=== PATIENT | male | born 1960 | race Caucasian/White ===

== ENCOUNTER 2019-07-18 18:35 | Observation (INO) ==
--- NOTE | 2019-07-18 19:17 | Emergency Department Note ---
ED Disposition Clinical Impression: Allergic reaction, Angio-edema Disposition: Xfer Short-Term Hosp Condition on Discharge: Serious - Critical Care Critical Care Time: Yes Attestation: On , the high probability of a clinically significant, sudden or life threatening deterioration of the following system(s) required my full and direct attention, intervention and personal management. The time I documented below is in addition to time spent performing reported procedures but includes the following listed in this critical care notation. My critical care processes included: Assessment & monitoring of V/S, Initial and Re-exams Medical Decision Making - Medical Records Medical records reviewed: Yes: I reviewed the patient's medical records. - Humberto Inquiry Pt receiving controlled substance: No Vital Signs: 07/18/19 18:41 07/18/19 19:23 07/18/19 20:18 Temperature 98.0 F 97.9 F Temperature Source Oral Axillary Pulse Rate Pulse Rate [Right Brachial] 88 78 76 Respiratory Rate 18 18 18 Blood Pressure Blood Pressure [Right Arm] 160/104 H 136/86 152/87 H Blood Pressure Mean [Right Arm] 122 102 108 Blood Pressure Source [Right Arm] Automatic Cuff Automatic Cuff Blood Pressure Position [Right Arm] Sitting Sitting 02 Sat by Pulse Oximetry 100 98 94 L Oxygen Delivery Method Room Air Room Air Room Air 07/18/19 22:53 07/18/19 23:23 07/18/19 23:26 Temperature 97.8 F 97.5 F L Temperature Source Oral Pulse Rate 84 Pulse Rate [Right Brachial] 88 81 Respiratory Rate 16 18 24 Blood Pressure 152/87 H Blood Pressure [Right Arm] 141/86 H 151/81 H Blood Pressure Mean [Right Arm] 104 104 Blood Pressure Source [Right Arm] Automatic Cuff Automatic Cuff Blood Pressure Position [Right Arm] Sitting Supine 02 Sat by Pulse Oximetry 95 93 L Oxygen Delivery Method Room Air Room Air - Lab Data Lab Results 07/18/19 21:35: Blood Type A Positive 07/18/19 21:35: WBC 10.8, RBC 4.91, Hgb 15.7, Hct 45.3, MCV 92.3, MCH 32.0 H, MCHC 34.6, RDW 12.9, Plt Count 238, MPV 6.6 L, Neut % (Auto) 86.9 H, Lymph % (Auto) 10.3, [place] % (Auto) 2.6, Eos % (Auto) 0.1, Baso % (Auto) 0.1, Neut # (Auto) 9.4 H, Lymph # (Auto) 1.1, [place] # (Auto) 0.3, Eos # (Auto) 0.0, Baso # (Auto) 0.0, Total Counted 100, Neutrophils % (Manual) 91 H, Lymphocytes % (Manual) 9 L, Platelet Estimate Normal, RBC Morphology Normal 07/18/19 21:35: Sodium 138, Potassium 4.5, Chloride 104, Carbon Dioxide 22, Anion Gap 16.5 H, BUN 17, Creatinine 1.17, Estimated Creat Clear 113, Estimated GFR 64, Est GFR ( Amer) 77, Glucose 157 H, Calcium 9.9, Total Bilirubin 0.5, AST 41 H, ALT 50, Alkaline Phosphatase 48, Total Protein 7.9, Albumin 4.3, Globulin 3.6 H, Albumin/Globulin Ratio 1.2 07/18/19 21:35: Blood Type Confirm A Positive Result diagrams: 07/19/19 04:10 07/19/19 04:10 Orders (Tests/Meds): ED MEDICATIONS Discontinued Medications Generic Name Dose Route Start Last Admin Trade Name Freq PRN Reason Stop Dose Admin Acetaminophen 650 mg 07/18/19 23:24 Acetaminophen 325mg Tab PO 08/17/19 23:23 Q4HP PRN As Needed for Fever or Pain Carvedilol 6.25 mg 07/19/19 09:00 07/19/19 09:38 Coreg 6.25mg Tablet PO 08/18/19 08:59 6.25 mg BID VENESSA Administration Diphenhydramine HCl 50 mg 07/18/19 19:09 07/18/19 19:10 Benadryl 50mg/1ml Vial IV 07/18/19 19:10 50 mg ONCE ONE Administration Diphenhydramine HCl 25 mg 07/18/19 23:16 Benadryl 50mg/1ml Vial IV 08/17/19 23:15 Q4HP PRN Itching Diphenhydramine HCl 25 mg 07/18/19 23:24 Benadryl 50mg/1ml Vial IV 08/17/19 23:15 Q4HP PRN Itching Epinephrine HCl 0.3 mg 07/18/19 20:52 07/18/19 21:30 Epinephrine 1mg/Ml Amp SQ 07/18/19 20:53 0.3 mg ONCE ONE Administration Famotidine 20 mg 07/18/19 19:09 07/18/19 19:11 Pepcid 20mg/2ml Vial IV 07/18/19 19:10 20 mg ONCE ONE Administration Famotidine 20 mg 07/19/19 01:00 Pepcid 20mg/2ml Vial IV 08/18/19 00:59 BID VENESSA Famotidine 20 mg 07/19/19 01:00 07/19/19 09:38 Pepcid 20mg/2ml Vial IV 08/18/19 00:59 20 mg BID VENESSA Administration Sodium Chloride 250 mls @ 25 mls/hr 07/18/19 21:15 07/19/19 03:56 Sod Chlor 0.9% 250ml Bag IV 07/19/19 21:14 25 mls/hr .Q10H VENESSA Administration Sodium Chloride 1,000 mls @ 50 mls/hr 07/18/19 23:24 07/19/19 00:16 Sod Chlor 0.9% 1000ml Bag IV 08/17/19 23:23 50 mls/hr .Q20H VENESSA Administration Lisinopril 40 mg 07/19/19 09:00 07/19/19 09:38 Zestril 20mg Tab PO 08/18/19 08:59 40 mg DAILY VENESSA Administration Methylprednisolone Sodium Succinate 125 mg 07/18/19 19:09 07/18/19 19:11 Solu-Medrol 125mg/2ml Vial IV 07/18/19 19:10 125 mg ONCE ONE Administration Methylprednisolone Sodium Succinate 40 mg 07/18/19 23:15 07/19/19 00:08 Methylprednisolone Sod Succinate 40mg Vial IV 08/17/19 23:14 40 mg Q6H VENESSA Administration Methylprednisolone Sodium Succinate 40 mg 07/19/19 05:15 07/19/19 05:57 Methylprednisolone Sod Succinate 40mg Vial IV 08/17/19 23:14 40 mg Q6H VENESSA Administration Methylprednisolone Sodium Succinate 40 mg 07/19/19 12:00 Methylprednisolone Sod Succinate 40mg Vial IV 08/18/19 11:59 Q6H VENESSA Sodium Chloride 8 ml 07/18/19 19:09 Sodium Chloride 0.9% 10ml Vial IV 08/17/19 19:08 NEEDED PRN dilute pepcid Sodium Chloride 10 ml 07/18/19 19:09 Saline Flush 10ml Syringe IV 08/17/19 19:08 NEEDED PRN Maintain IV Site Sodium Chloride 8 ml 07/18/19 23:13 Sodium Chloride 0.9% 10ml Vial IV 08/17/19 23:12 NEEDED PRN dilute famotidine Sodium Chloride 10 ml 07/18/19 23:13 Saline Flush 10ml Syringe IV 08/17/19 23:12 NEEDED PRN Maintain IV Site Sodium Chloride 8 ml 07/18/19 23:24 07/19/19 09:38 Sodium Chloride 0.9% 10ml Vial IV 08/17/19 23:12 8 ml NEEDED PRN Administration dilute famotidine Sodium Chloride 10 ml 07/18/19 23:24 Saline Flush 10ml Syringe IV 08/17/19 23:12 NEEDED PRN Maintain IV Site General Adult HPI - General Chief complaint: Dental/Oral Stated complaint: Surgery 07/18 on tongue, tongue swelling Time Seen by Provider: 07/18/19 18:50 Mode of Arrival: Family Vehicle Limitations: No Limitations Description of Symptoms (Recalled from ER Triage Doc. by RN): had an oral procedure complete in surgery this morning and noticed swelling this evening extending down into his throat from under his tongue. no actual difficulty breathing, patient still can swallow, feels like "not as well"; denies pain. no signs of bleeding. sutures remain intact. states he has attempted cold water and drink today since surgery to help with swelling with no noticeable change - History of Present Illness Onset (ago): hour(s) (8) Location: mouth Severity: moderate Consistency: constant Relieving factors: none Exacerbating factors: none Associated symptoms: denies other symptoms - Related Data Home Medications Medication Instructions Recorded Confirmed aspirin 81 mg tablet,delayed 81 mg PO DAILY tab 01/24/18 07/19/19 release cholecalciferol (vitamin D3) 2,000 2,000 unit PO DAILY cap 01/24/18 07/19/19 unit capsule lisinopril 40 mg tablet 40 mg PO DAILY tab 01/24/18 07/19/19 pitavastatin calcium 4 mg tablet 4 mg PO HS 01/24/18 07/19/19 vitamin B complex tablet 1 tab PO QAM 01/24/18 07/19/19 carvedilol 3.125 mg tablet 6.25 mg PO BID tab 01/31/19 07/19/19 esomeprazole magnesium 40 mg 40 mg PO DAILY PRN cap 01/31/19 07/19/19 capsule,delayed release Metformin HCl [Metformin HCl ER] 500 mg PO DAILY 07/19/19 07/19/19 Previous Rx's Medication Instructions Recorded Famotidine/Pf [Pepcid 20mg/2mL 20 mg IV BID 10 Days #20 vial 07/19/19 Vial] diphenhydrAMINE HCl [Benadryl 25 mg IV Q6HP PRN 5 Days #20 07/19/19 50mg/1mL vial] syringe predniSONE [Deltasone 10mg tablet] 20 mg PO BID 4 Days #16 tab 07/19/19 Allergies Allergy/AdvReac Type Severity Reaction Status Date / Time hydrocodone [HYDROCODONE] Allergy Unknown Verified 07/12/19 11:11 oxycodone [OXYCODONE] Allergy Unknown Verified 07/12/19 11:11 Penicillins [PENICILLINS] Allergy Unknown Verified 07/12/19 11:11 [facility] History - Hepatitis A Screen Drug use history?: No High risk sexual behaviors?: No History of sexually transmitted infection?: No Currently employed?: No Childcare worker?: No Do you have indoor plumbing?: Yes Do you have electricity?: Yes Attestation statement:: This patient has been screened for Hepatitis A risk factors. I have reviewed the patient's past medical history: Yes Medical History: Reports:: Anxiety, Coronary Artery Disease, Gastroesophageal Reflux Disease(GERD), Hyperlipidemia, Hypertension, Palpitations Denies:: Cancer, Diabetes Mellitus Type 1, Diabetes Mellitus Type 2, Internal Pacemaker, MRSA, Seizures Other Medical History: Reports: Arthritis. Denies: Blood Transfusion Reaction Comment: obesity, JACKIE does not use CPAP Other Surgeries: Yes: Cardiac Catheterization, Other. No: Pacemaker Amputation: No Fractures: No Comment: tongue lesion - Social History Smoking Status: Former smoker Tobacco Type: cigarettes # Packs/Day (cigarettes): 1 Alcohol Intake: never Alcohol Intake Frequency:: other Substance Use Type: denies use Occupational Status: disabled Housing: house Household Members: spouse - Psychiatric History Pschychiatric History:: Reports:: Anxiety Family Hx:: Coronary Artery Disease ROS Obtained: Yes Systems reviewed as appropriate & no additional complaints - Constitutional Constitutional: Reports system reviewed and no additional complaints, except as docu - Eyes Eyes: Reports system reviewed and no additional complaints, except as docu - ENT Ears, Nose, Mouth, and Throat: Reports other (mouth and tongue swelling) - Cardiovascular Cardiovascular: Reports system reviewed and no additional complaints, except as docu - Respiratory Respiratory: Yes system reviewed and no additional complaints, except as docu - Gastrointestinal Gastrointestingal: Reports: system reviewed and no additional complaints, except as docu - Musculoskeletal Musculoskeletal: Reports system reviewed and no additional complaints, except as docu - Integumentary/Breasts Skin/Breast: Reports system reviewed and no additional complaints, except as docu - Neurologic Neurologic: Reports system reviewed and no additional complaints, except as docu - Endocrine Endocrine: Reports system reviewed and no additional complaints, except as docu - Hematologic/Lymphatic Henatologic/Lymphatic: Reports system reviewed and no additional complaints, except as docu - Allergic/Immunologic Allergic/Immunologic: Reports tongue swelling Physical Exam - General General appearance: alert, in no apparent distress - Head Head exam: atraumatic, normocephalic, normal inspection - Eye Eye exam: Present: normal appearance, PERRL, EOMI - ENT ENT exam: Present: normal exam, normal oropharynx, mucous membranes moist, TM's normal bilaterally, normal external ear exam - Expanded ENT Exam Mouth exam: Present: tongue swelling - Neck Neck exam: Present: normal inspection, full ROM, trachea midline. Absent: meningismus, lymphadenopathy - Chest Chest inspection: Present: normal inspection, symmetric chest wall rise. Absent: tenderness - Respiratory Respiratory exam: Present: normal lung sounds bilaterally. Absent: respiratory distress - Cardiovascular Cardiovascular exam: Present: regular rate, normal rhythm. Absent: JVD - Abdominal Exam Abdominal exam: Present: soft, normal bowel sounds. Absent: distention, tenderness, guarding - Extremities Exam Extremities exam: Present: normal inspection, full ROM, normal capillary refill. Absent: calf tenderness - Back Exam Back exam: Present: normal inspection. Absent: tenderness - Neurological Exam Neurological exam: Present: alert, oriented X3 - Psychiatric Psychiatric exam: Present: normal affect, normal mood - Skin Skin exam: Present: warm, dry, intact, normal color - Lymphatic Lymphatic Findings: no adenopathy
[2019-07-18 22:13] LABS: Basophils % 0.1 % (0.1-2.0); Eosinophils % 0.1 % (0.1-12.0); Hematocrit 45.3 % (42.0-52.0); Hemoglobin 15.7 g/dL (14.1-18.0); Lymphocytes # 1.1 K/mm3 (0.7-4.5); Lymphocytes % 10.3 % (10-50); Mean Corpuscular HGB Conc 34.6 g/dL (31.8-35.4); Mean Corpuscular Volume 92.3 fl (80-94); Mean Platelet Volume 6.6 fl (7.4-10.4); Monocytes # 0.3 K/mm3 (0.1-1.0); Monocytes % 2.6 % (1.7-9.3); Neutrophils # 9.4 K/mm3 (1.8-7.8); Neutrophils % 86.9 % (37.0-80.0); Platelet Count 238 K/mm3 (142-424); Red Blood Count 4.91 M/mm3 (4.60-6.20); Red Cell Distribution Width 12.9 % (11.5-17.5); White Blood Count 10.8 K/mm3 (4.8-10.8)
[2019-07-18 22:24] LABS: Albumin Level 4.3 gm/dL (3.4-5.0); Albumin/Globulin Ratio 1.2 (1.1-1.8); Anion Gap 16.5 mEq/L (5-15); Bilirubin,Total 0.5 mg/dL (0.2-1.0); Calcium 9.9 mg/dL (8.5-10.1); Globulin 3.6 gm/dl (1.3-3.2); Total Protein,Serum 7.9 gm/dL (6.4-8.2)
[2019-07-18 23:32] LABS: Lymphocytes % 9 % (10-50); Neutrophils % 91 % (42-76); RBC Morphology Normal; Total Cells Counted 100
[2019-07-19 04:38] LABS: Basophils % 0.1 % (0.1-2.0); Eosinophils % 0.1 % (0.1-12.0); Hematocrit 42.7 % (42.0-52.0); Lymphocytes # 1.3 K/mm3 (0.7-4.5); Lymphocytes % 10.3 % (10-50); Mean Corpuscular HGB Conc 33.1 g/dL (31.8-35.4); Mean Corpuscular Volume 93.2 fl (80-94); Mean Platelet Volume 7.2 fl (7.4-10.4); Monocytes # 0.3 K/mm3 (0.1-1.0); Monocytes % 2.2 % (1.7-9.3); Neutrophils # 11.4 K/mm3 (1.8-7.8); Neutrophils % 87.4 % (37.0-80.0); Platelet Count 228 K/mm3 (142-424); Red Blood Count 4.58 M/mm3 (4.60-6.20)
[2019-07-19 04:45] LABS: Hemoglobin 14.3 g/dL (14.1-18.0)
[2019-07-19 04:53] LABS: Albumin Level 4.2 gm/dL (3.4-5.0); Albumin/Globulin Ratio 1.2 (1.1-1.8); Anion Gap 15.1 mEq/L (5-15); Bilirubin,Total 0.4 mg/dL (0.2-1.0); Calcium 9.5 mg/dL (8.5-10.1); Globulin 3.6 gm/dl (1.3-3.2); Phosphorous 2.8 mg/dL (2.4-4.9); Total Protein,Serum 7.8 gm/dL (6.4-8.2)
--- NOTE | 2019-07-19 08:12 | Pharmacy Consult Notes ---
[facility] Pharmacy VTE Monitoring - Patient Demographics Admission date: 07/18/19 Report Date: 07/19/19 Time: 08:12 Allergies/Adverse Reactions: Patient Allergies hydrocodone [HYDROCODONE] Allergy (Unknown, Verified 07/12/19 11:11) oxycodone [OXYCODONE] Allergy (Unknown, Verified 07/12/19 11:11) Penicillins [PENICILLINS] Allergy (Unknown, Verified 07/12/19 11:11) Height: 1.8 m Weight: 101.661 kg Patient Problems: Current Active Problems Allergic reaction (Acute) Angio-edema (Acute) - VTE Risk Labs: VTE Related Lab Results Hgb 14.3 g/dL (14.1-18.0) 07/19/19 04:10 Hct 42.7 % (42.0-52.0) 07/19/19 04:10 Plt Count 228 K/mm3 (142-424) 07/19/19 04:10 BUN 17 mg/dL (7-18) 07/19/19 04:10 Creatinine 1.13 mg/dL (0.70-1.30) 07/19/19 04:10 Estimated Creat Clear 100 mL/min (50-200) 07/19/19 04:10 VTE Score: 4 VTE Risk Level: Low Risk - Prophylaxis VTE Prophylaxis Ordered?: Yes Types of VTE Prophylaxis: TEDS Knee High Location of Applied Device: Bilateral Lower Extremeties - VTE Diagnosis Confirmed Treatment or plan recommended: Continue Current Treatment
--- NOTE | 2019-07-19 08:44 | H&P/Discharge Summary ---
General - General Admission date:: 07/18/19 Discharge date: 07/19/19 *Admission Date: 07/18/19 *Chief complaint: swelling tongue *History of present illness: Mr. 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 Has had multiple resections performed by ENT. Patient had a procedure performed yesterday by Dr. Abrmas and noted swelling of his tongue at home. Presented to the ER due to worsening swelling or he was diagnosed with angioedema. Initiated on steroids, Benadryl, famotidine. Received a single dose of epinephrine. Admitted overnight for observation due to concern of potential airway obstruction. On assessment this morning patient is feeling much better. Able to talk without significant difficulty. Denies shortness of breath, chest pain, wheeze, nausea or vomiting. [facility] History I have reviewed the patient's past medical history: Yes Medical History: Reports:: Anxiety, Coronary Artery Disease, Diabetes Mellitus Type 2, Gastroesophageal Reflux Disease(GERD), Hyperlipidemia, Hypertension, Palpitations Denies:: Cancer, Diabetes Mellitus Type 1, Internal Pacemaker, MRSA, Seizures *Have you ever received a pneumonia vaccine?: Yes *Have you received a flu vaccine this season?: No Other Medical History: Reports: Arthritis. Denies: Blood Transfusion Reaction Other Surgeries: Yes: Cardiac Catheterization, Other (ORAL SX). No: Pacemaker Amputation: No Fractures: No - *Social History Educational Level: Attended Grade School Smoking Status: Former smoker Tobacco Type: cigarettes # Packs/Day (cigarettes): 1 Smoking End Date: 15 YEARS Alcohol Intake: former Alcohol Intake Frequency:: other Substance Use Type: denies use *Occupational Status:: disabled Housing: apartment Household Members: spouse *Travel in the last 8 weeks: None - Psychiatric History Expresses thoughts of harming self/others: None Suicide Plan Description: No Plan Pschychiatric History:: Reports:: Anxiety Family Hx:: Coronary Artery Disease Review of Systems - Review of Systems Review of systems:: pertinent systems reviewed and negative unless documented below Exam Vital signs and Labs for Last 24 Hours: Temp Pulse Resp BP Pulse Ox 98.7 F 78 18 155/87 H 94 L 07/19/19 08:00 07/19/19 06:00 07/19/19 06:00 07/19/19 06:00 07/19/19 06:00 Laboratory Results - last 24 hr 07/18/19 21:35: Blood Type A Positive 07/18/19 21:35: WBC 10.8, RBC 4.91, Hgb 15.7, Hct 45.3, MCV 92.3, MCH 32.0 H, MCHC 34.6, RDW 12.9, Plt Count 238, MPV 6.6 L, Neut % (Auto) 86.9 H, Lymph % (Auto) 10.3, [place] % (Auto) 2.6, Eos % (Auto) 0.1, Baso % (Auto) 0.1, Neut # (Auto) 9.4 H, Lymph # (Auto) 1.1, [place] # (Auto) 0.3, Eos # (Auto) 0.0, Baso # (Auto) 0.0, Total Counted 100, Neutrophils % (Manual) 91 H, Lymphocytes % (Manual) 9 L, Platelet Estimate Normal, RBC Morphology Normal 07/18/19 21:35: Sodium 138, Potassium 4.5, Chloride 104, Carbon Dioxide 22, Anion Gap 16.5 H, BUN 17, Creatinine 1.17, Estimated Creat Clear 113, Estimated GFR 64, Est GFR ( Amer) 77, Glucose 157 H, Calcium 9.9, Total Bilirubin 0.5, AST 41 H, ALT 50, Alkaline Phosphatase 48, Total Protein 7.9, Albumin 4.3, Globulin 3.6 H, Albumin/Globulin Ratio 1.2 07/18/19 21:35: Blood Type Confirm A Positive 07/19/19 04:10: WBC 13.0 H, RBC 4.58 L, Hgb 14.3, Hct 42.7, MCV 93.2, MCH 30.9, MCHC 33.1, RDW 13.0, Plt Count 228, MPV 7.2 L, Neut % (Auto) 87.4 H, Lymph % (Auto) 10.3, [place] % (Auto) 2.2, Eos % (Auto) 0.1, Baso % (Auto) 0.1, Neut # (Auto) 11.4 H, Lymph # (Auto) 1.3, [place] # (Auto) 0.3, Eos # (Auto) 0.0, Baso # (Auto) 0.0 07/19/19 04:10: Sodium 140, Potassium 4.1, Chloride 105, Carbon Dioxide 24, Anion Gap 15.1 H, BUN 17, Creatinine 1.13, Estimated Creat Clear 100, Estimated GFR 66, Est GFR ( Amer) 80, Glucose 176 H, Calcium 9.5, Phosphorus 2.8, Magnesium 1.9, Total Bilirubin 0.4, AST 34, ALT 40, Alkaline Phosphatase 43 L, Total Protein 7.8, Albumin 4.2, Globulin 3.6 H, Albumin/Globulin Ratio 1.2 07/19/19 05:56: POC Glucose 196 H I & O for Last 24 hours: Intake & Output 07/16/19 07/17/19 07/18/19 07/19/19 23:59 23:59 23:59 23:59 Intake Total 155.10 / 155.10 Output Total 700 / 700 Balance -544.90 / -544.90 Weight 100.783 kg 101.661 kg - Constitutional no acute distress - *Routine HEENT Exam Head: Present: normocephalic Eye: Present: EOMI, PERRL ENT: Present: mucous membranes moist Comments: Right side of tongue larger than left, ecchymoses on base of tongue. Stitches in place. Able to appreciate oropharynx on exam with no concern for obstruction - *Routine Neck Exam Present: supple. Absent: lymphadenopathy - *Routine Respiratory Exam Present: CTA bilaterally - *Routine Cardiovascular Exam Present: RRR - *Routine Abdominal Exam Present: soft, normoactive bowel sounds. Absent: tenderness - *Routine Extremities Exam Absent: cyanosis, clubbing, edema - *Routine Skin Exam Present: warm. Absent: rash - *Routine Neurological Exam Present: alert, oriented X3 Hospital Course Hospital Course: Treated aggressively with steroids, Benadryl, famotidine, and epinephrine. Additionally received FFP. Patient doing better this morning. No respiratory distress overnight. Patient tolerating p.o. intake. Stable for discharge home. Plan to discharge on regimen to help control swelling. Instructed to follow-up in our office in 1 week Results Labs on day of discharge: Labs from last 24 hours 07/19/19 07/19/19 07/19/19 05:56 04:10 04:10 WBC 13.0 H RBC 4.58 L Hgb 14.3 Hct 42.7 MCV 93.2 MCH 30.9 MCHC 33.1 RDW 13.0 Plt Count 228 MPV 7.2 L Neut % (Auto) 87.4 H Lymph % (Auto) 10.3 [place] % (Auto) 2.2 Eos % (Auto) 0.1 Baso % (Auto) 0.1 Neut # (Auto) 11.4 H Lymph # (Auto) 1.3 [place] # (Auto) 0.3 Eos # (Auto) 0.0 Baso # (Auto) 0.0 Total Counted Neutrophils % (Manual) Lymphocytes % (Manual) Platelet Estimate RBC Morphology Sodium 140 Potassium 4.1 Chloride 105 Carbon Dioxide 24 Anion Gap 15.1 H BUN 17 Creatinine 1.13 Estimated Creat Clear 100 Estimated GFR 66 Est GFR ( Amer) 80 Glucose 176 H POC Glucose 196 H Calcium 9.5 Phosphorus 2.8 Magnesium 1.9 Total Bilirubin 0.4 AST 34 ALT 40 Alkaline Phosphatase 43 L Total Protein 7.8 Albumin 4.2 Globulin 3.6 H Albumin/Globulin Ratio 1.2 Blood Type Blood Type Confirm 07/18/19 07/18/19 07/18/19 21:35 21:35 21:35 WBC 10.8 RBC 4.91 Hgb 15.7 Hct 45.3 MCV 92.3 MCH 32.0 H MCHC 34.6 RDW 12.9 Plt Count 238 MPV 6.6 L Neut % (Auto) 86.9 H Lymph % (Auto) 10.3 [place] % (Auto) 2.6 Eos % (Auto) 0.1 Baso % (Auto) 0.1 Neut # (Auto) 9.4 H Lymph # (Auto) 1.1 [place] # (Auto) 0.3 Eos # (Auto) 0.0 Baso # (Auto) 0.0 Total Counted 100 Neutrophils % (Manual) 91 H Lymphocytes % (Manual) 9 L Platelet Estimate Normal RBC Morphology Normal Sodium 138 Potassium 4.5 Chloride 104 Carbon Dioxide 22 Anion Gap 16.5 H BUN 17 Creatinine 1.17 Estimated Creat Clear 113 Estimated GFR 64 Est GFR ( Amer) 77 Glucose 157 H POC Glucose Calcium 9.9 Phosphorus Magnesium Total Bilirubin 0.5 AST 41 H ALT 50 Alkaline Phosphatase 48 Total Protein 7.9 Albumin 4.3 Globulin 3.6 H Albumin/Globulin Ratio 1.2 Blood Type Blood Type Confirm A Positive 07/18/19 21:35 WBC RBC Hgb Hct MCV MCH MCHC RDW Plt Count MPV Neut % (Auto) Lymph % (Auto) [place] % (Auto) Eos % (Auto) Baso % (Auto) Neut # (Auto) Lymph # (Auto) [place] # (Auto) Eos # (Auto) Baso # (Auto) Total Counted Neutrophils % (Manual) Lymphocytes % (Manual) Platelet Estimate RBC Morphology Sodium Potassium Chloride Carbon Dioxide Anion Gap BUN Creatinine Estimated Creat Clear Estimated GFR Est GFR ( Amer) Glucose POC Glucose Calcium Phosphorus Magnesium Total Bilirubin AST ALT Alkaline Phosphatase Total Protein Albumin Globulin Albumin/Globulin Ratio Blood Type A Positive Blood Type Confirm DS: Diagnosis - Discharge Diagnosis (1) Tongue lesion Status: Acute (2) Angio-edema Status: Acute Discharge Plan - Patient Discharge Instructions ACTIVITY: Continue current activity DIET: continue same diet Patient Instructions: DI for Angioedema, DI for General Allergic Reactions - Follow up Plan Follow up with: Lyudmila Preston APRN [Primary Care Provider] - Disposition: Home, Self-Halfway Medications: Home Medications Medication Instructions Recorded Confirmed Type aspirin 81 mg tablet,delayed 81 mg PO DAILY tab 01/24/18 07/19/19 History release cholecalciferol (vitamin D3) 2,000 2,000 unit PO DAILY cap 01/24/18 07/19/19 History unit capsule lisinopril 40 mg tablet 40 mg PO DAILY tab 01/24/18 07/19/19 History pitavastatin calcium 4 mg tablet 4 mg PO HS 01/24/18 07/19/19 History vitamin B complex tablet 1 tab PO QAM 01/24/18 07/19/19 History carvedilol 3.125 mg tablet 6.25 mg PO BID tab 01/31/19 07/19/19 History esomeprazole magnesium 40 mg 40 mg PO DAILY PRN cap 01/31/19 07/19/19 History capsule,delayed release Famotidine/Pf [Pepcid 20mg/2mL 20 mg IV BID 10 Days #20 vial 07/19/19 Rx Vial] Metformin HCl [Metformin HCl ER] 500 mg PO DAILY 07/19/19 07/19/19 History diphenhydrAMINE HCl [Benadryl 25 mg IV Q6HP PRN 5 Days #20 07/19/19 Rx 50mg/1mL vial] syringe predniSONE [Deltasone 10mg tablet] 20 mg PO BID 4 Days #16 tab 07/19/19 Rx Prescriptions/Medication Reconciliation: New Famotidine/Pf [Pepcid 20mg/2mL Vial] 20 mg IV BID 10 Days #20 vial diphenhydrAMINE HCl [Benadryl 50mg/1mL vial] 25 mg IV Q6HP PRN 5 Days #20 syringe PRN Reason: Itching Continued lisinopril 40 mg tablet 40 mg PO DAILY tab pitavastatin calcium 4 mg tablet 4 mg PO HS vitamin B complex tablet 1 tab PO QAM cholecalciferol (vitamin D3) 2,000 unit capsule 2,000 unit PO DAILY cap carvedilol 3.125 mg tablet 6.25 mg PO BID tab aspirin 81 mg tablet,delayed release 81 mg PO DAILY tab esomeprazole magnesium 40 mg capsule,delayed release 40 mg PO DAILY PRN cap PRN Reason: gerd Metformin HCl [Metformin HCl ER] 500 mg PO DAILY - Problem Reconciliation Problems Reviewed?: Yes
== END 2019-07-19 10:40 | disposition home or self-care (01) ==
LOC: ER 18:35 → 2ND 22:45 → INTOOBSV 23:25 → 2ND 23:27
PROVIDERS: ADMIT Internal Medicine Adolescent Medicine; ATTEND Internal Medicine Adolescent Medicine
CPT/HCPCS: 36415; 70490; 80053; 82962; 83735; 84100; 85007; 85025; 86900; 86901; 96372; 96374; 96375; 99284; G0378; J0330; J2405; P9017; S0077

== ENCOUNTER → 2020-11-06 07:23 | Outpatient (CLI) | payer MEDICARE, OTHER, MEDICAID, SELFPAY ==
--- NOTE | 2020-11-06 | CA_ITS ---
APPROVED REPORT Exam: Pharmacologic Technologist: Renetta oYo, Ht: 5 ft 10 in Wt: 227 lbs BSA: 2.20 m2 HR: 67 bpm BP: 178/102 mmHg Rhythm: NSR Medical History Medical History: Diabetic ??? Noninsulin, HTN, Hyperlipidemia Medications: Lisinopril,,,,, Asa,,,,, Metformin,,,,, Carvedilol,,,,, Nexium,,,,, Vit D3,,,,, Vit B,,,,, LiVALO,,,,, ICOSAPENT,,,,, Allergies: HYDROCODONE, OXYCODONE, PCN, STATINS Cardiac Risk Factors: HTN, Hyperlipidemia, Diabetes (non-insulin), FHX of CAD Stress Test Details Test: LEXISCAN HR Resting HR: 69 bpm Max Heart Rate (APMHR): 160 bpm Max HR Achieved: 108 bpm Target HR (85% APMHR): 136 bpm % of APMHR: 67 Recovery HR: 91 bpm BP Resting BP: 178.0/102.0 mmHg Max BP: 178.0/102.0 mmHg Recovery BP: 158.0/86.0 mmHg ECG Resting ECG: NSR Clinical Reason for Termination: Completed Protocol Exercise duration: 04:05 min Highest Stage Achieved: Exercise capacity: 1.0 METs Stress ECG Conclusion DURING INFUSION PATIENT HAD NO CHEST PAIN. NO ARRHYTHMIAS/ECTOPY. <1.5MM ST SEGMENT CHANGES. NON-DIAGNOSTIC Electronically signed by : Luiz Sarkar, 11/06/2020 11:37:54
--- NOTE | 2020-11-06 | NM_ITS ---
APPROVED REPORT Exam: Nuclear Stress Test Indication: DYSRHYTHMIA, VALVULAR DISEASE, HTN, HYPERLIPIDEMIA, FM HX, SOB Patient Location: Outpatient Stress Tech: Angelica Arenasnkson [place] Tech:MARY Toledo RT (R)(N)(M) Ht: 5 ft 11 in Wt: 226 lbs HR: 67 bpm BP: 178/102 mmHg BSA: 2.22 m2 BMI: 31.5 History: DYSRHYTHMIA, VALVULAR DISEASE, HTN, HYPERLIPIDEMIA, FM HX, SOB Procedure: Patient received a 0.4 mg of intravenous Lexiscan, resting heart rate 67 bpm, resting blood pressure 178/102 mmHg, with Lexiscan maximum heart rate achived was 106 bpm which is Less than 85 % of the maximum predicted heart rate and blood pressure was 175/90 mmHg. With Lexiscan, patient denied any complaint of chest pain. Electrocardiogram Resting electrocardiogram showed sinus rhythm, with Lexiscan there is less than 1.[address] segment depression noted from the baseline EKG. The EKG portion of the Lexiscan is nondiagnostic. Cardiac Stress and Resting SPECT Images: Cardiac Stress and Resting SPECT images were obtained using technetium 99m Myoview 30.0 mCi stress and 10.68 mCi at rest. Gated SPECT for analysis of segmental wall motion and calculation of the ejection fraction also done. Prone images were also obtained. Cardiac stress and resting SPECT images show uniform myocardial activity without segmental perfusion abnormality, computer derived ejection fraction is 58% with no regional wall motion abnormality, right ventricle is normal size and contractility. Conclusion: 1. The EKG portion of the Lexiscan is nondiagnostic. 2. No scintigraphic evidence of reversible ischemia seen, computer derived ejection fraction is 58% with no regional wall motion abnormality, right ventricle is normal size and contractility. 3. Normal Lexiscan Myoview study. Electronically signed by : Luiz Sarkar, 11/06/2020 11:41:47
--- NOTE | 2020-11-06 07:35 | CA_ITS ---
APPROVED REPORT EXAM: Comprehensive 2D, Doppler, and color-flow Echocardiogram Functional Tester: Syeda Marcos CRT Ht: 5 ft 10 in Wt: 227lbs BSA: 2.20 BP: 130/80 mmHg Indications: Shortness of Breath, Diabetes, Palpitations, Hyperlipidemia, Hypertension/HDD, myocardial bridge 2017, bradycardia, gerd 2D Dimensions LVOT 1.72 cm (M/F) 1.5-2.5 M-Mode Dimensions RVDd 3.23 cm (0.9-2.6) LA Diam 4.03 cm (1.9-4.0) LVDd 5.89 cm (3.5-5.7) Ao Diam 4.69 cm (2.0-3.7) LVDs 3.42 cm (3.5-5.7) IVSd 1.25 cm (0.6-1.1) PWd 0.27 cm (0.6-1.1) EF (Teich) 72.10% FS 41.90% EDV (Teich) 172.50 mL ESV (Teich) 48.10 mL LV Diastology E Decel Time 157.00 (160-240 msec) E/A Ratio 1.03 MED E' 6.00 (< 7 cm/sec) E'/MED E' Ratio 13.82 (>14) LAT E' 9.00 (<10 cm/sec) E/LAT E' Ratio 9.21 (>14) Aortic Valve AO Peak GR. 6.20 mmHg Mitral Valve MV A Velocity 80.00 (40-130 cm/s) E/A Ratio 1.03 MV Decel. Time 157.00 (160-240 ms) Pulmonary Valve PV Peak Velocity 76.00 (50-150 cm/s) Tricuspid Valve TR P. Velocity 162.00 cm/s RAP Estimate 1.00 mmHg RVSP 11.50 mmHg Left Ventricle Left atrium is mildly enlarged, left ventricle is normal size, mild concentric left ventricular hypertrophy, visually estimated ejection fraction 55% with no regional wall motion abnormality, grade 1 diastolic dysfunction seen without tissue Doppler evidence of raise left atrial pressure. Right Ventricle Right atrium and right ventricle are normal size and contractility. Aortic Valve Aortic valve is minimally thickened and fibrosed, there is no aortic stenosis or aortic insufficiency. Mitral Valve Mitral valve is grossly normal, there is mild mitral regurgitation. Tricuspid Valve Tricuspid valve is grossly normal, there is mild tricuspid regurgitation, tricuspid regurgitation jet velocity is inadequate for calculation of the right ventricular systolic pressure. Pulmonic Valve Pulmonic valve is poorly visualized. Great Vessels Aortic root is normal size. Pericardium No significant pericardial effusion noted. Conclusion 1. Mildly enlarged left atrium, normal left ventricular size, mild concentric left ventricular hypertrophy, visually estimated ejection fraction 55% with no regional wall motion abnormality, grade 1 diastolic dysfunction seen without tissue Doppler evidence of raise left atrial pressure. 2. Mild mitral and tricuspid regurgitation. 3. No significant pericardial effusion noted. Electronically signed by : Luiz Sarkar, 11/06/2020 13:01:34
== END ==
PROVIDERS: PCP Nurse Practitioner Family; Visit Provider Nurse Practitioner Family
DX: R07.9 Chest pain, unspecified (principal); R06.00 Dyspnea, unspecified; I25.10 Atherosclerotic heart disease of native coronary artery without angina pectoris; I11.9 Hypertensive heart disease without heart failure; E78.5 Hyperlipidemia, unspecified
CPT/HCPCS: 78452; 93017; 93306; A9502; J2785

== ENCOUNTER 2020-12-04 09:33 | Emergency (ER) | payer MEDICARE, OTHER, SELFPAY ==
[2020-12-04 09:44] VITALS: BP 147/73; PULSE 79; RESP 18; TEMP 36.7; O2SAT 94; BMI 31.5
[2020-12-04 09:45] VITALS: BP 147/73; PULSE 79; RESP 18; TEMP 36.7; O2SAT 94; BMI 31.4
--- NOTE | 2020-12-04 09:54 | XR_ITS ---
PROCEDURE: XR CHEST 2V CLINICAL HISTORY: cough Hemoptysis COMPARISON: CR CXR CHEST(2 VIEWS-NOT PORTABLE) from 05/28/2017 FINDINGS: The cardiomediastinal silhouette and pulmonary vascularity are within normal limits. There are low lung volumes. Masslike density is present in the right lower lobe measuring 6 by 6 cm and may be due to an area of dense consolidation/rounded pneumonia. Neoplasm is also considered. Chest CT with contrast suggested for further evaluation. Patchy density also present in the left lung base and right midlung may be due to areas of atelectasis/vascular crowding. No acute bony findings.. IMPRESSION: Right lower lobe mass versus dense area of consolidation. Consider chest CT with contrast for further evaluation Dictated by: Sherif Zurita MD 12/04/2020 10:39 Sherif Zurita MD in [place] 12/04/2020 10:39
--- NOTE | 2020-12-04 09:56 | HMH.EDUTC ---
[facility] [place] Disposition Clinical Impression: Hemoptysis Disposition: Home, Self-Care Condition on Discharge: Good Instructions: DI for Hemoptysis Additional Instructions: Call Aysha's office and let them know you have had an abnormal Xray and need to be scheduled for a CT scan Prescriptions: levoFLOXacin [Levaquin 500mg tab] 500 mg PO DAILY 10 Days #10 tab Transmission Status: Pending to [facility] # predniSONE [Prednisone 20mg Tab] 20 mg PO BID 5 Days #10 tab Transmission Status: Pending to [facility] [facility] # Referrals: Lyudmila Preston APRN [Primary Care Provider] - Time of Disposition: 10:57 Medical Decision Making - Humberto Inquiry Pt receiving controlled substance: No Vital Signs: 12/04/20 09:44 12/04/20 09:45 Temperature 98.0 F 98.0 F Temperature Source Oral Oral Pulse Rate [Left Radial] 79 79 Respiratory Rate 18 18 Blood Pressure [Left Arm] 147/73 H 147/73 H Blood Pressure Mean [Left Arm] 97 97 Blood Pressure Source [Left Arm] Automatic Cuff Automatic Cuff Blood Pressure Position [Left Arm] Sitting Sitting 02 Sat by Pulse Oximetry 94 L 94 L Oxygen Delivery Method Room Air Room Air - Radiology Data #1 Image(s): Chest Image Reviewed: Yes I reviewed the patient's radiology image, Yes I have reviewed radiologist's interpretation Preliminary Findings: Abnormal FINDINGS: The cardiomediastinal silhouette and pulmonary vascularity are within normal limits. There are low lung volumes. Masslike density is present in the right lower lobe measuring 6 by 6 cm and may be due to an area of dense consolidation/rounded pneumonia. Neoplasm is also considered. Chest CT with contrast suggested for further evaluation. Patchy density also present in the left lung base and right midlung may be due to areas of atelectasis/vascular crowding. No acute bony findings.. IMPRESSION: Right lower lobe mass versus dense area of consolidation. Consider chest CT with contrast for further evaluation Medical Decision Narrative: Discussed CXR results with patient and his . I will treat for pneumonia but reiterated several times that they are to call this afternoon to make a follow up appointment with Aysha Preston for further testing. [facility] [place] HPI - General Stated complaint: coughing up blood Time Seen by Provider: 12/04/20 09:56 Mode of Arrival: Ambulatory Source of Information: Patient Limitations: No Limitations Description of Symptoms (Recalled from Triage Doc. by RN): pt reports coughing up pink tinged sputum x2 days, denies SOA, pain, fevers. Pt reports approx 1 week ago for a couple of days he had some nasal drainage from his sinuses stating it was pink tinged. - History of Present Illness Provider Complaint: 1 week ago had some pink tinged bloody sinus drainage. Now coughing up pink tinged sputum. No fever. No ear pain, sinus congestion, sore throat. No shortness of breath. No fever. No vomiting or diarrhea. Does not smoke. This morning what he coughed up looked a little darker and he thought he should get checked. Has some pain across the middle of his back. Started after having a stress test a week or two ago, but he states his results were normal. He does take ASA daily but denies other blood thinners. Onset (ago): week(s) (1) Location: chest Consistency: intermittent Relieving factors: none Exacerbating factors: none Associated symptoms: cough Treatments prior to arrival: none - Related Data Home Medications Medication Instructions Recorded Confirmed aspirin 81 mg tablet,delayed 81 mg PO DAILY tab 01/24/18 12/04/20 release cholecalciferol (vitamin D3) 50 2,000 unit PO DAILY cap 01/24/18 12/04/20 mcg (2,000 unit) capsule lisinopril 40 mg tablet 40 mg PO DAILY tab 01/24/18 12/04/20 pitavastatin calcium 4 mg tablet 4 mg PO HS 01/24/18 12/04/20 esomeprazole magnesium 40 mg 40 mg PO DAILYP PRN cap 01/31/19 12/04/20 capsule,delayed
[2020-12-04 11:04] VITALS: BP 147/73; PULSE 79; RESP 18; TEMP 36.7; O2SAT 94
== END 2020-12-04 11:06 | disposition home or self-care (01) ==
LOC: ER 09:45 → UTC 09:46
PROVIDERS: Emergency Provider Physician Assistant; PCP Nurse Practitioner Family
DX: J18.9 Pneumonia, unspecified organism (principal); I10 Essential (primary) hypertension; E78.5 Hyperlipidemia, unspecified; I25.10 Atherosclerotic heart disease of native coronary artery without angina pectoris; E11.9 Type 2 diabetes mellitus without complications; F41.9 Anxiety disorder, unspecified; Z79.899 Other long term (current) drug therapy; Z88.0 Allergy status to penicillin; Z88.5 Allergy status to narcotic agent
CPT/HCPCS: G0463; 71046; 99202

== ENCOUNTER → 2020-12-10 09:37 | Outpatient (CLI) | payer MEDICARE, OTHER, SELFPAY ==
[2020-12-10 10:47] LABS: Blood Urea Nitrogen 20 mg/dl (9-20); Estimated Glomerular Filt Rate 62 ml/min (>60); GFR (African American) 75 ML/MIN (>60)
== END ==
PROVIDERS: Visit Provider Internal Medicine Adolescent Medicine
DX: R93.89 Abnormal findings on diagnostic imaging of other specified body structures (principal)
CPT/HCPCS: 36415; 82565; 84520

== ENCOUNTER → 2020-12-11 09:46 | Outpatient (CLI) | payer MEDICARE, OTHER, SELFPAY ==
--- NOTE | 2020-12-11 09:53 | CT_ITS ---
PROCEDURE: CT CHEST W CON CLINCAL INDICATION: ABN CXR, hemoptysis, abnormal chest x-ray, cough, possible lung mass Spit up blood a couple weeks ago, Dyspnea on exertion, Iso 370 75 ml COMPARISON: CR XR CHEST 2V from 12/04/2020 TECHNIQUE: IV Contrast: 75ml Isovue 370 Axial images obtained with sagittal and coronal reformats. All CT scans at the facility use one or more dose reduction, viz: automated exposure control, ma/kV adjustment per patient size (including targeted exams where dose is matched to indication, i.e. head), or iterative reconstruction technique. FINDINGS: HEART AND MEDIASTINAL STRUCTURES: Coronary artery calcifications are present. There are a few mildly prominent mediastinal lymph nodes and small bilateral hilar nodes. Right anterior paratracheal lymph node is present measuring 2.4 x 1.2 cm. Mildly prominent right hilar node is also present at 1.2 cm. There is subcarinal adenopathy at 2.9 x 1.8 cm. The LUNGS AND PLEURAL SPACES: Mild centrilobular emphysema and mild paraseptal emphysema in the lung apices. Mild bronchial thickening suggesting COPD. There is some patchy infiltrate in the right lower lobe superiorly and anteriorly and in the right upper lobe laterally. There is a 5 cm mass in the right lower lobe posteriorly rounded in nature. The margins are somewhat irregular with extension to the pleural surface posteriorly. This contains a coarse central calcification and a peripheral calcification posteriorly. This is highly suspicious for neoplasm. Dense consolidation would be included in the differential diagnosis. This is contiguous with the posterior basilar segmental bronchus and should be accessible for biopsy via bronchoscopy. BONY STRUCTURES: No acute bony abnormalities apparent. UPPER ABDOMEN: Posterior to the right lobe of the liver and superior to the right kidney there is a 3 cm irregular area of increased density rounded in nature within the retroperitoneal fat. This extends to the hemidiaphragm with some mild thickening along the inferior surface of the hemidiaphragm. The adrenal glands are slightly lobular which are nonspecific. ADDITIONAL FINDINGS: No other significant abnormalities. IMPRESSION: 1. 5 cm mass in the right lower lobe posteriorly rounded in nature. This is highly suspicious for neoplasm. Dense consolidation would be included in the differential diagnosis. This is contiguous with the posterior basilar segmental bronchus and should be accessible for biopsy via bronchoscopy 2. Mild mediastinal and right hilar adenopathy. 3. Patchy infiltrates in the right lower lobe and right upper lobe. 4. Unusual 3 cm mass or phlegmonous change in the retroperitoneum on the right superior to the right kidney. This could be due to metastatic disease, primary retroperitoneal neoplasm, or inflammatory/infectious change. Dictated by: Sherif Zurita MD 12/13/2020 12:12 Sherif Zurita MD in [place] 12/13/2020 12:12
== END ==
PROVIDERS: PCP Nurse Practitioner Family; Visit Provider Nurse Practitioner Family
DX: R06.09 Other forms of dyspnea (principal); R93.89 Abnormal findings on diagnostic imaging of other specified body structures
CPT/HCPCS: 71260; Q9967

== ENCOUNTER → 2021-01-11 09:51 | Outpatient (CLI) | payer MEDICARE, OTHER, SELFPAY ==
[2021-01-11 10:26] LABS: Basophils # 0.1 K/mm3 (0-0.2); Basophils % 0.8 % (0.1-2.0); Eosinophils # 0.4 K/mm3 (0.0-0.4); Eosinophils % 5.2 % (0.1-12.0); Hematocrit 45.1 % (42.0-52.0); Hemoglobin 15.1 g/dL (14.1-18.0); Lymphocytes # 1.8 K/mm3 (0.7-4.5); Lymphocytes % 24.1 % (10-50); Mean Corpuscular HGB Conc 33.5 g/dL (31.8-35.4); Mean Corpuscular Hemoglobin 30.4 pg (27.0-31.2); Mean Corpuscular Volume 90.7 fl (80-94); Mean Platelet Volume 6.8 fl (7.4-10.4); Monocytes # 0.7 K/mm3 (0.1-1.0); Neutrophils # 4.5 K/mm3 (1.8-7.8); Neutrophils % 60.9 % (37.0-80.0); Platelet Count 269 K/mm3 (142-424); Red Blood Count 4.97 M/mm3 (4.60-6.20); Red Cell Distribution Width 13.1 % (11.5-17.5); White Blood Count 7.3 K/mm3 (4.8-10.8)
[2021-01-11 10:35] LABS: INR 1.04 (0.9-1.1); Prothrombin Time 11.7 seconds (9.4-11.8)
[2021-01-14 22:39] LABS: Aspergillus flavus Negative (Neg:<1:1); Aspergillus fumigatus Negative (Neg:<1:1); Aspergillus niger Negative (Neg:<1:1)
[2021-01-15 18:36] LABS: Blastomyces Antibody Negative (Neg:<1:1)
== END ==
LOC: LAB 09:52 → COVID.OUT 10:13
PROVIDERS: PCP Nurse Practitioner Family; Visit Provider Internal Medicine Pulmonary Disease
DX: R04.2 Hemoptysis (principal); J45.909 Unspecified asthma, uncomplicated; J84.10 Pulmonary fibrosis, unspecified; Z01.818 Encounter for other preprocedural examination; Z20.822 Contact with and (suspected) exposure to COVID-19
CPT/HCPCS: 36415; 85025; 85610; 86606; 86612; U0003

== ENCOUNTER → 2021-01-13 11:28 | Day surgery (SDC) | payer MEDICARE, OTHER, SELFPAY ==
[2021-01-07 09:47] VITALS: BMI 32.0
--- NOTE | 2021-01-13 12:21 | SUR.PREOP ---
Procedure cancelled/rescheduled. Pt did not hold ASA/Ibuprofen.
== END ==
PROVIDERS: PCP Nurse Practitioner Family; Visit Provider Internal Medicine Pulmonary Disease
DX: R91.8 Other nonspecific abnormal finding of lung field (principal); Z53.09 Procedure and treatment not carried out because of other contraindication

== ENCOUNTER 2021-01-28 12:18 | Inpatient (IN) | payer MEDICARE, OTHER, SELFPAY ==
[2021-01-28 10:57] LABS: Basophils # 0.1 K/mm3 (0-0.2); Basophils % 0.6 % (0.1-2.0); Eosinophils # 0.6 K/mm3 (0.0-0.4); Eosinophils % 6.7 % (0.1-12.0); Hematocrit 42.7 % (42.0-52.0); Hemoglobin 13.6 g/dL (14.1-18.0); Lymphocytes # 1.8 K/mm3 (0.7-4.5); Mean Corpuscular HGB Conc 31.8 g/dL (31.8-35.4); Mean Corpuscular Hemoglobin 29.7 pg (27.0-31.2); Mean Corpuscular Volume 93.5 fl (80-94); Mean Platelet Volume 6.8 fl (7.4-10.4); Monocytes % 11.1 % (1.7-9.3); Neutrophils # 5.7 K/mm3 (1.8-7.8); Neutrophils % 61.6 % (37.0-80.0); Platelet Count 323 K/mm3 (142-424); Red Blood Count 4.57 M/mm3 (4.60-6.20); Red Cell Distribution Width 13.1 % (11.5-17.5); White Blood Count 9.2 K/mm3 (4.8-10.8)
[2021-01-28 11:23] LABS: Chloride 93 mmol/L (98-107); Sodium 129 mmol/L (136-145)
[2021-01-28 11:25] LABS: Blood Urea Nitrogen 16 mg/dl (9-20); Estimated Glomerular Filt Rate 76 ml/min (>60); GFR (African American) 92 ML/MIN (>60)
[2021-01-28 11:26] LABS: Alanine Aminotransferase 28 U/L (12-78); Albumin Level 4.7 g/dl (3.5-5.0); Albumin/Globulin Ratio 1.5 (1.1-1.8); Alkaline Phosphatase 103 U/L (38-126); Aspartate Amino Transferase 34 U/L (17-59); Bilirubin,Total 0.6 mg/dl (0.2-1.3); Calcium 11.5 mg/dl (8.4-10.2); Carbon Dioxide 25 mmol/L (22.0-30.0); Globulin 3.2 g/dL (1.3-3.2); Glucose 114 mg/dl (74-100); Magnesium 1.7 mg/dl (1.6-2.3); Total Protein,Serum 7.9 g/dl (6.3-8.2)
[2021-01-28 12:20] VITALS: BP 134/62; PULSE 89; RESP 18; TEMP 36.7; O2SAT 99; BMI 29.9
--- NOTE | 2021-01-28 12:50 | PC.NURSE ---
Pt arrived to the floor at this time
--- NOTE | 2021-01-28 13:05 | XR_ITS ---
PROCEDURE: XR CHEST 2V CLINICAL HISTORY: chest pain Chest pain and COMPARISON: CR CXR CHEST(2 VIEWS-NOT PORTABLE) from 05/28/2017 CR XR CHEST 2V from 12/04/[address] CHEST W CON from 12/11/2020 FINDINGS: The cardiomediastinal silhouette and pulmonary vascularity are within normal limits. Right lower lobe mass once again noted and may be somewhat smaller. Mass is somewhat less well defined. There is some associated atelectatic change or infiltrate in the right lower lobe laterally. Pleural thickening versus pleural based mass noted in the left midlung laterally. This is not readily apparent on the previous study and could even be due to a healing rib fracture. Chest CT may provide further evaluation. IMPRESSION: 1. Right lower lobe mass appears slightly smaller with some worsening in the right basilar infiltrate or atelectatic change. 2. Pleural based density in the left midlung laterally and could be due to pleural based mass or healing fracture Dictated by: Sherif Zurita MD 01/28/2021 16:27 Sherif Zurita MD in [place] 01/28/2021 16:27
--- NOTE | 2021-01-28 14:02 | FL_ITS ---
PROCEDURE: FL BARIUM SWALLOW CLINICAL INDICATION: dysphagia COMPARISON: No exams were available for comparison TECHNIQUE: In the upright position the patient was observed to swallow barium in both the AP and lateral view. The cervical esophagus was examined under fluoroscopy with images obtained. The patient was then placed prone in the right anterior oblique position and was observed to swallow barium with Valsalva technique . FLUOROSCOPY TIME: 1 minutes and 45 seconds FINDINGS: There is no annular constricting lesions. No obstructing lesions evident. There is mild esophageal dysmotility with tertiary contractions. No hiatal hernia parent. IMPRESSION: Esophageal dysmotility otherwise negative Dictated by: Sherif Zurita MD 01/28/2021 15:12 Sherif Zurita MD in [place] 01/28/2021 15:12
--- NOTE | 2021-01-28 14:06 | HMH.PHAVTE ---
[facility] Pharmacy VTE Monitoring - Patient Demographics Admission date: 01/28/21 Report Date: 01/28/21 Time: 14:06 Allergies/Adverse Reactions: Patient Allergies hydrocodone [HYDROCODONE] Allergy (Unknown, Verified 12/28/20 11:09) oxycodone [OXYCODONE] Allergy (Unknown, Verified 12/28/20 11:09) Penicillins [PENICILLINS] Allergy (Unknown, Verified 12/28/20 11:09) Sghxqqt-Tfj-Bge Reductase Inhibitor Adverse Reaction (Severe, Verified 12/28/20 11:09) Height: 1.8 m Weight: 97.522 kg - VTE Risk Labs: VTE Related Lab Results Hgb 13.6 g/dL (14.1-18.0) L 01/28/21 10:21 Hct 42.7 % (42.0-52.0) 01/28/21 10:21 Plt Count 323 K/mm3 (142-424) 01/28/21 10:21 BUN 16 mg/dl (9-20) 01/28/21 10:21 Creatinine 1.00 mg/dl (0.66-1.25) 01/28/21 10:21 Was VTE Risk Assessment Performed: No VTE Score: 2 VTE Risk Level: Low Risk Clinical Trial Participant: No - Prophylaxis Types of VTE Prophylaxis: TEDS Knee High
--- NOTE | 2021-01-28 14:34 | HMH.PHAINT ---
clarified home medication list using list from Clinic Pharmacy
--- NOTE | 2021-01-28 15:18 | HMH.GSCON ---
*Admission Date: 01/28/21 *Reason for consult:: Dysphagia *History of present illness: This is a 60-year-old gentleman seen in consultation from Dr. Ortega for evaluation regarding dysphagia. He seems somewhat confused as to details; however, he does describe difficulty swallowing that started a bit ago but is now better . He states that he just swallowed some of this food (full liquid diet) fine . He also describes some vague upper abdominal/lower chest discomfort with eating. Review of Systems - Constitutional Denies chills - Eyes Denies change in vision - ENT Reports difficulty swallowing - *Cardiovascular Denies chest pain - *Respiratory Denies cough - *Gastrointestinal Denies abdominal pain - *Genitourinary Denies blood in urine - *Musculoskeletal Denies deformity - Integumentary/Breasts Denies new lesions - *Neurologic Denies confusion - Psychiatric Denies anxiety - Endocrine Denies cold intolerance - Hematologic/Lymphatic Denies easy bleeding - Allergic/Immunologic Denies tongue swelling [facility] History Medical History: Reports:: Anxiety, Cancer, Coronary Artery Disease, Diabetes Mellitus Type 2, Gastroesophageal Reflux Disease(GERD), Hyperlipidemia, Hypertension, Palpitations Denies:: Diabetes Mellitus Type 1, Internal Pacemaker, MRSA, Seizures *Have you ever received a pneumonia vaccine?: No *Have you received a flu vaccine this season?: No Other Medical History: Reports: Arthritis. Denies: Blood Transfusion Reaction Other Surgeries: Yes: Cardiac Catheterization, Colonoscopy, Other (ORAL SX). No: Pacemaker Amputation: No Fractures: No - *Social History Smoking Status: Never smoker Tobacco Type: cigarettes # Packs/Day (cigarettes): 1 Alcohol Intake: never Alcohol Intake Frequency:: other Substance Use Type: denies use *Occupational Status:: disabled Housing: house Household Members: spouse *Travel in the last 8 weeks: None - Psychiatric History Pschychiatric History:: Reports:: Anxiety Family Hx:: Hyperlipidemia, Hypertension Meds Home Medications Medication Instructions Recorded Confirmed Type aspirin 81 mg tablet,delayed 81 mg PO DAILY tab 01/24/18 01/28/21 History release cholecalciferol (vitamin D3) 50 2,000 unit PO DAILY cap 01/24/18 01/28/21 History mcg (2,000 unit) capsule lisinopril 40 mg tablet 40 mg PO DAILY tab 01/24/18 01/28/21 History pitavastatin calcium 4 mg tablet 4 mg PO HS 01/24/18 01/28/21 History carvedilol 12.5 mg tablet 12.5 mg PO BID tab 08/13/20 01/28/21 History icosapent ethyl 1 gram capsule 2 g PO BID cap 08/13/20 01/28/21 History metformin 500 mg tablet,extended 1,000 mg PO DAILY tab 08/13/20 01/28/21 History release 24 hr Albuterol Sulfate [Proventil Hfa] 1 inh INHALATION QIDP PRN 01/28/21 01/28/21 History Esomeprazole Magnesium 40 mg PO DAILY 01/28/21 01/28/21 History Fluticasone Propionate 2 spr NS DAILY 01/28/21 01/28/21 History Hydrocodone/Acetaminophen 1 tab PO QIDP PRN 01/28/21 01/28/21 History [Hydrocodone-Acetamin 5-325 mg] Ipratropium/Albuterol Sulfate 1 puff INHALATION QID 01/28/21 01/28/21 History [Combivent Respimat Inh] Ipratropium/Albuterol Sulfate 3 ml IH QIDP PRN 01/28/21 01/28/21 History [Duoneb 3mL neb] Allergies Allergy/AdvReac Type Severity Reaction Status Date / Time hydrocodone [HYDROCODONE] Allergy Unknown Verified 12/28/20 11:09 oxycodone [OXYCODONE] Allergy Unknown Verified 12/28/20 11:09 Penicillins [PENICILLINS] Allergy Unknown Verified 12/28/20 11:09 Dmlardj-Qcw-Cwk Reductase AdvReac Severe Verified 12/28/20 11:09 Inhibitor Exam Vital signs and Labs for Last 24 Hours: Temp Pulse Resp Pulse Ox 98.1 F 89 18 99 01/28/21 12:20 01/28/21 12:20 01/28/21 12:20 01/28/21 12:20 Laboratory Results - last 24 hr 01/28/21 10:21: Sodium 129 L, Potassium 5.0, Chloride 93 L, Carbon Dioxide 25, Anion Gap 16.0 H, BUN 16, Creatinine 1.00, Estimated GFR 76, Est
[2021-01-28 16:00] VITALS: BP 128/54; PULSE 103; RESP 18; TEMP 36.4; O2SAT 99
--- NOTE | 2021-01-28 19:41 | HMH.HP ---
*Admission Date: 01/28/21 *Chief complaint: vomiting *History of present illness: 60-year-old male presented to our outpatient clinic today accompanied by his with concern for recurrent vomiting after he attempts to eat. Hasn't had much appetite for several weeks but in the last few days has started to have sensation that food is getting stuck when he tries to swallow. This causes some chest discomfort and he has had several episodes of vomiting because he can't get things to go down. He is able to swallow liquids but in small sips. He denies any hematemesis. Bowel and bladder are moving without difficulty. He takes Nexium daily, has had prior colonoscopy but no prior upper endoscopy. He had been taking quite a bit of ibuprofen for upper back pain but has stopped now because of his pending bronchoscopy to investigate a right lung mass. Also having a lot of difficulty with pain between his shoulder blades. This is present all day but worse in the mornings and evenings. Really does not improve with [place] [facility] nor with several topicals that they have attempted from [id number]. He does have some mild shortness of breath with exertion which has been ongoing. Improves some with inhaler and/or nebulizer treatment. Weight is down 8 pounds in about 3 weeks and labs revealed hyponatremia as well as hypercalcemia and he was admitted for IV hydration, imaging and possibly upper endoscopy. [facility] History I have reviewed the patient's past medical history: Yes Medical History: Reports:: Anxiety, Cancer, Coronary Artery Disease, Diabetes Mellitus Type 2, Gastroesophageal Reflux Disease(GERD), Hyperlipidemia, Hypertension, Palpitations Denies:: Diabetes Mellitus Type 1, Internal Pacemaker, MRSA, Seizures *Have you ever received a pneumonia vaccine?: Yes *Have you received a flu vaccine this season?: Yes Other Medical History: Reports: Arthritis. Denies: Blood Transfusion Reaction Other Surgeries: Yes: Cardiac Catheterization, Colonoscopy, Other (ORAL SX). No: Pacemaker Amputation: No Fractures: No - *Social History Smoking Status: Former smoker Tobacco Type: cigarettes # Packs/Day (cigarettes): 1 Alcohol Intake: never Alcohol Intake Frequency:: other Substance Use Type: denies use *Occupational Status:: disabled Housing: house Household Members: spouse *Travel in the last 8 weeks: None - Psychiatric History Expresses thoughts of harming self/others: None Pschychiatric History:: Reports:: Anxiety Family Hx:: Hyperlipidemia, Hypertension Review of Systems - Review of Systems Review of systems:: pertinent systems reviewed and negative unless documented below - Constitutional Reports fatigue, Reports malaise, Reports weakness, Reports weight loss, Denies fever(s) - ENT Reports dry mouth, Reports difficulty swallowing, Reports hoarseness - *Cardiovascular Reports chest pain at rest, Reports shortness of breath (at baseline, improves with albuterol), Denies leg swelling - *Respiratory Reports cough (occasional, nonproductive), Denies chest congestion - *Gastrointestinal Reports constipation, Denies abdominal pain, Denies bloating, Denies change in bowel habits, Denies vomiting blood - *Genitourinary Denies difficulty urinating - *Musculoskeletal Reports back pain - Integumentary/Breasts Denies rash - *Neurologic Denies confusion Meds Home Medications Medication Instructions Recorded Confirmed Type aspirin 81 mg tablet,delayed 81 mg PO DAILY tab 01/24/18 01/28/21 History release cholecalciferol (vitamin D3) 50 2,000 unit PO DAILY cap 01/24/18 01/28/21 History mcg (2,000 unit) capsule lisinopril 40 mg tablet 40 mg PO DAILY tab 01/24/18 01/28/21 History pitavastatin calcium 4 mg tablet 4 mg PO HS 01/24/18 01/28/21 History carvedilol 12.5 mg tablet 12.5 mg PO BID tab 08/13/20 01/28/21 History icosapent ethyl 1 gram capsule 2 g PO BID cap 08/13/20 01/28/21 History metformin 500 mg tablet,extended 1,000 mg
[2021-01-28 19:52] VITALS: BP 117/78; PULSE 98; RESP 14; TEMP 36.7; O2SAT 96
[2021-01-28 19:57] VITALS: O2SAT 95
[2021-01-29] VITALS (20 sets, daily range): BP systolic 102–165; BP diastolic 59–95; PULSE 80–98; RESP 16–19; TEMP 36.5–37.2; O2SAT 96–99; BMI 29.4; BMI 29.2
--- NOTE | 2021-01-29 03:41 | PC.NURSE ---
Pt A&OX4 lungs CTA. active BS in all quads. pt medicated for pain several times throughout shift per JAN. pt NPO @ midnight for EGD. consent signed on the chart
--- NOTE | 2021-01-29 06:21 | HMH.ACPN2 ---
Internal Medicine - PN: Subj *Date: 01/29/21 *Time: 08:30 Interval history: Patient did well overnight. Went for EGD this morning. No mass or achalasia found. Has spasticity of esophagus and gastritis. Surgery okay with advancing diet pending pulmonology consult. Patient denies any nausea or vomiting. Denies any chest pain. Does have some discomfort lower margin of rib cage bilaterally. No shortness of breath. Afebrile overnight. Exam Vital signs and Labs for Last 24 Hours: Temp Pulse Resp BP Pulse Ox 97.7 F 98 H 19 154/89 H 99 01/29/21 04:00 01/29/21 04:00 01/29/21 04:00 01/29/21 04:00 01/29/21 04:00 Laboratory Results - last 24 hr 01/28/21 10:21: Sodium 129 L, Potassium 5.0, Chloride 93 L, Carbon Dioxide 25, Anion Gap 16.0 H, BUN 16, Creatinine 1.00, Estimated GFR 76, Est GFR ( Amer) 92, Glucose 114 H, Calcium 11.5 H, Magnesium 1.7, Total Bilirubin 0.6, AST 34, ALT 28, Alkaline Phosphatase 103, Total Protein 7.9, Albumin 4.7, Globulin 3.2, Albumin/Globulin Ratio 1.5 01/28/21 10:21: WBC 9.2, RBC 4.57 L, Hgb 13.6 L, Hct 42.7, MCV 93.5, MCH 29.7, MCHC 31.8, RDW 13.1, Plt Count 323, MPV 6.8 L, Neut % (Auto) 61.6, Lymph % (Auto) 20.0, [place] % (Auto) 11.1 H, Eos % (Auto) 6.7, Baso % (Auto) 0.6, Neut # (Auto) 5.7, Lymph # (Auto) 1.8, [place] # (Auto) 1.0, Eos # (Auto) 0.6 H, Baso # (Auto) 0.1 I & O for Last 24 hours: Intake & Output 01/26/21 01/27/21 01/28/21 01/29/21 23:59 23:59 23:59 23:59 Intake Total 240 / 240 1825 / 1825 Balance 240 / 240 1825 / 1825 Weight 97.522 kg Microbiology Reports for the Last 24 Hours: Microbiology 01/28/21 13:25 Nasopharyngeal Coronavirus COVID-19 PCR - Final Narrative: - Constitutional no acute distress - *Routine HEENT Exam Head: Present: normocephalic Eye: Present: conjunctivae pink ENT: Present: mucous membranes dry (edentulous, abnormal tongue contour from prior excisions), oropharynx clear - *Routine Neck Exam Present: supple. Absent: lymphadenopathy - *Routine Respiratory Exam Present: decreased breath sounds, CTA bilaterally. Absent: accessory muscle use - *Routine Cardiovascular Exam Present: RRR, murmur - *Routine Abdominal Exam Present: soft, normoactive bowel sounds. Absent: tenderness, distended - *Routine Extremities Exam Present: full ROM, pulses intact. Absent: clubbing, edema - *Routine Skin Exam Present: intact, dry, warm. Absent: rash - *Routine Neurological Exam Present: alert, oriented X3, moving all extremities, hearing grossly intact. Absent: altered mental status Assessment and Plan (1) Dysphagia Status: Acute Category: Medical Code(s): R13.10 - Dysphagia, unspecified (2) Right lower lobe lung mass Status: Acute Category: Medical Code(s): R91.8 - Other nonspecific abnormal finding of lung field (3) Hyponatremia Status: Acute Category: Medical Code(s): E87.1 - Hypo-osmolality and hyponatremia (4) Hypercalcemia Status: Acute Category: Medical Code(s): E83.52 - Hypercalcemia (5) Dehydration Status: Acute Category: Medical Code(s): E86.0 - Dehydration (6) HTN (hypertension) Status: Chronic Qualifiers: Hypertension type: essential hypertension Qualified Code(s): I10 - Essential (primary) hypertension Category: Medical Code(s): I10 - Essential (primary) hypertension (7) Type 2 diabetes mellitus Status: Chronic Qualifiers: Diabetes mellitus middle or intermediate school principal insulin use: without longterm use Diabetes mellitus complication status: without complication Qualified Code(s): E11.9 - Type 2 diabetes mellitus without complications Category: Medical Code(s): E11.9 - Type 2 diabetes mellitus without complications (8) Back pain Status: Acute Qualifiers: Back pain location: thoracic back pain Chronicity: acute Back pain laterality: bilateral Qualified Code(s): M54.6 - Pain in thoracic spine Category: Medical Code(s): M54
--- NOTE | 2021-01-29 06:25 | PC.NURSE ---
PT IS OFF THE FLOOR VIA W/C WITH OR STAFF AT 0622.
[2021-01-29 06:44] LABS: Eosinophils # 0.5 K/mm3 (0.0-0.4); Lymphocytes # 1.6 K/mm3 (0.7-4.5); Monocytes # 0.9 K/mm3 (0.1-1.0); Neutrophils # 3.6 K/mm3 (1.8-7.8)
[2021-01-29 06:52] LABS: Anion Gap 12.3 mEq/L (5-15); Blood Urea Nitrogen 10 mg/dl (9-20); Carbon Dioxide 24 mmol/L (22.0-30.0); Chloride 98 mmol/L (98-107); Creatinine Clearance Estimated 120 mL/min (50-200); Estimated Glomerular Filt Rate 86 ml/min (>60); GFR (African American) 104 ML/MIN (>60); Glucose 148 mg/dl (74-100); Potassium 4.3 mmoL/L (3.5-5.1); Sodium 130 mmol/L (136-145)
[2021-01-29 06:57] LABS: Calcium 10.3 mg/dl (8.4-10.2)
--- NOTE | 2021-01-29 07:15 | HMH.SCOPE ---
- Procedure: Date: 01/29/21 Patient Date of :: 1960 Procedure Performed:: Esophagogastroduodenoscopy with biopsy Indications:: Dysphagia Performing Provider:: Alexei Jiang MD Referring Provider:: Dr. Ortega Sedation:: Monitored anesthesia care Procedure:: After informed consent was obtained the patient was taken to the endoscopy suite. Sedation ensued after the patient was transferred to the left lateral decubitus position. Pulse, blood pressure, and oxygen saturation were monitored throughout the procedure. The endoscope was advanced beyond the duodenal bulb. Retroflexion within the gastric lumen was accomplished. The gastroscope was carefully removed and the patient was transferred to recovery in stable condition. Please see findings and specimens below for detail. Findings:: Visible spasticity of mid/distal esophagus No mass lesion or significant stricture Gastroesophageal junction at 40 cm Mild bile reflux Mild gastritis Specimens:: Antral biopsy Recommendations:: Continue medical therapy for possible reflux and likely esophageal spasm as per primary service. Follow-up pathology. Complications:: No immediate Estimated blood obtained (mL): 1
[2021-01-29 07:16] LABS: Basophils # 0.1 K/mm3 (0-0.2); Basophils % 0.7 % (0.1-2.0); Eosinophils % 7.1 % (0.1-12.0); Hematocrit 36.7 % (42.0-52.0); Mean Corpuscular HGB Conc 33.2 g/dL (31.8-35.4); Mean Corpuscular Hemoglobin 29.3 pg (27.0-31.2); Mean Corpuscular Volume 88.3 fl (80-94); Mean Platelet Volume 6.8 fl (7.4-10.4); Monocytes % 13.1 % (1.7-9.3); Neutrophils % 54.9 % (37.0-80.0); Platelet Count 271 K/mm3 (142-424); Red Blood Count 4.16 M/mm3 (4.60-6.20); Red Cell Distribution Width 13.1 % (11.5-17.5); White Blood Count 6.5 K/mm3 (4.8-10.8)
[2021-01-29 07:23] LABS: Hemoglobin 12.2 g/dL (14.1-18.0)
--- NOTE | 2021-01-29 07:26 | HMH.ANESCL ---
[facility] Anesthesia Checklist - Patient Identification Patient Identification: Arm Band - Structural Data Admitted From: Home Planned Operative Procedure/s: egd Consent for Planned Operative Procedure(s) Verified: Yes Verified Documents: Surgical Consent, History and Physical - NPO Status Verified Time NPO: 00:00 - Additional verifications Anesthesia Reactions: No Hx Blood Transfusions: No Blood Transfusion Reaction: No - Airway Assessment C-Spine Mobility Assessed: Yes (mp2) TMJ Mobility Assessed: Yes Dentition: Edentulous - Neurological Assessment Level of Consciousness: Awake, Alert - Anesthesia Plan Anesthesia Risk discussed: Yes Anesthesia Plan: Verified ASA Class: III Anesthesia Type: MAC [facility] History I have reviewed the patient's past medical history: Yes Medical History: Reports:: Anxiety, Cancer, Coronary Artery Disease, Diabetes Mellitus Type 2, Gastroesophageal Reflux Disease(GERD), Hyperlipidemia, Hypertension, Palpitations Denies:: Diabetes Mellitus Type 1, Internal Pacemaker, MRSA, Seizures *Have you ever received a pneumonia vaccine?: Yes *Have you received a flu vaccine this season?: Yes Other Medical History: Reports: Arthritis. Denies: Blood Transfusion Reaction Anesthesia experience/problems:: nac Other Surgeries: Yes: Cardiac Catheterization, Colonoscopy, Other (ORAL SX). No: Pacemaker Amputation: No Fractures: No - *Social History Smoking Status: Former smoker Tobacco Type: cigarettes # Packs/Day (cigarettes): 1 Alcohol Intake: never Alcohol Intake Frequency:: other Substance Use Type: denies use *Occupational Status:: disabled Housing: house Household Members: spouse *Travel in the last 8 weeks: None - Psychiatric History Expresses thoughts of harming self/others: None Pschychiatric History:: Reports:: Anxiety Family Hx:: Hyperlipidemia, Hypertension
--- NOTE | 2021-01-29 09:56 | HMH.PULMCON ---
*Admission Date: 01/28/21 *History of present illness: Mr. Collins is a 60-year-old man well-known to the pulmonary clinic being followed for lung mass along with mediastinal hilar adenopathy, initially scheduled for bronchoscopy with EBUS FNA last month however later patient did not follow his preoperative instructions presented to the hospital for dysphagia and pulmonary consult was called. [facility] History Medical History: Reports:: Anxiety, Cancer, Coronary Artery Disease, Diabetes Mellitus Type 2, Gastroesophageal Reflux Disease(GERD), Hyperlipidemia, Hypertension, Palpitations Denies:: Diabetes Mellitus Type 1, Internal Pacemaker, MRSA, Seizures *Have you ever received a pneumonia vaccine?: Yes *Have you received a flu vaccine this season?: Yes Other Medical History: Reports: Arthritis. Denies: Blood Transfusion Reaction Anesthesia experience/problems:: nac Other Surgeries: Yes: Cardiac Catheterization, Colonoscopy, Other (ORAL SX). No: Pacemaker Amputation: No Fractures: No - *Social History Smoking Status: Former smoker Tobacco Type: cigarettes # Packs/Day (cigarettes): 1 Alcohol Intake: never Alcohol Intake Frequency:: other Substance Use Type: denies use *Occupational Status:: disabled Housing: house Household Members: spouse *Travel in the last 8 weeks: None - Psychiatric History Expresses thoughts of harming self/others: None Pschychiatric History:: Reports:: Anxiety Family Hx:: Hyperlipidemia, Hypertension ROS - Cons Denies body ache(s), Denies chills - Card Reports shortness of breath with activity - Resp Respiratory: Reports dyspnea on exertion, Denies excessive phlegm production, Denies coughing up blood, Denies pain with cough, Denies cough with sputum production - GI Gastrointestingal: Reports: dysphagia, reflux, vomiting Meds Home Medications Medication Instructions Recorded Confirmed Type aspirin 81 mg tablet,delayed 81 mg PO DAILY tab 01/24/18 01/28/21 History release cholecalciferol (vitamin D3) 50 2,000 unit PO DAILY cap 01/24/18 01/28/21 History mcg (2,000 unit) capsule lisinopril 40 mg tablet 40 mg PO DAILY tab 01/24/18 01/28/21 History pitavastatin calcium 4 mg tablet 4 mg PO HS 01/24/18 01/28/21 History carvedilol 12.5 mg tablet 12.5 mg PO BID tab 08/13/20 01/28/21 History icosapent ethyl 1 gram capsule 2 g PO BID cap 08/13/20 01/28/21 History metformin 500 mg tablet,extended 1,000 mg PO DAILY tab 08/13/20 01/28/21 History release 24 hr Albuterol Sulfate [Proventil Hfa] 1 inh INHALATION QIDP PRN 01/28/21 01/28/21 History Esomeprazole Magnesium 40 mg PO DAILY 01/28/21 01/28/21 History Fluticasone Propionate 2 spr NS DAILY 01/28/21 01/28/21 History Hydrocodone/Acetaminophen 1 tab PO QIDP PRN 01/28/21 01/28/21 History [Hydrocodone-Acetamin 5-325 mg] Ipratropium/Albuterol Sulfate 1 puff INHALATION QID 01/28/21 01/28/21 History [Combivent Respimat Inh] Ipratropium/Albuterol Sulfate 3 ml IH QIDP PRN 01/28/21 01/28/21 History [Duoneb 3mL neb] Allergies Allergy/AdvReac Type Severity Reaction Status Date / Time hydrocodone [HYDROCODONE] Allergy Unknown Verified 12/28/20 11:09 oxycodone [OXYCODONE] Allergy Unknown Verified 12/28/20 11:09 Penicillins [PENICILLINS] Allergy Unknown Verified 12/28/20 11:09 Jlegewe-Hzp-Oio Reductase AdvReac Severe Verified 12/28/20 11:09 Inhibitor Exam - Constitutional Constitutional:: Present: no acute distress, comfortable - HENMT Exam HENMT: Present: normocephalic, atraumatic - Eye Exam Eyes:: Present: eyelids normal - Neck Exam Neck:: Present: thyroid normal - Respiratory Exam Comments: Right lower lung coarse breath sounds with mild wheeze noted. Rest of the lung madsen clear to auscultate. - Cardiovascular Exam Cardiac:: Present: S1, S2 - GI Exam GI:: Present: soft, no hepatosplenomegaly - Skin Exam Skin: Present: warm, no rash - Neurological Exam Neurological: Present: alert, devi
--- NOTE | 2021-01-29 18:41 | PC.NURSE ---
HE IS AOX4, HAS BEEN UP TO CHAIR FOR MOST OF SHIFT, TOLERATING RA WELL, TOLERATED CLEAR LIQUID DIET. LUNGS CTA. NO NEEDS AT THIS TIME.
--- NOTE | 2021-01-29 22:05 | PC.NURSE ---
He is A&Ox4. Ambulates independently with a steady gait. He is sitting up in his chair watching television. He has received PRN pain medication for pain his bilateral legs and his back. He is [place]. He reports his last BM was on 01/28/21. He reports a non-productive cough.
[2021-01-30] VITALS: BP 139/77; PULSE 81; RESP 16; TEMP 36.2; O2SAT 99
[2021-01-30 04:00] VITALS: BP 134/78; PULSE 81; RESP 16; TEMP 36.5; O2SAT 97
[2021-01-30 07:10] LABS: Basophils # 0.1 K/mm3 (0-0.2); Basophils % 0.7 % (0.1-2.0); Eosinophils # 0.5 K/mm3 (0.0-0.4); Eosinophils % 7.1 % (0.1-12.0); Hematocrit 35.8 % (42.0-52.0); Hemoglobin 12.1 g/dL (14.1-18.0); Lymphocytes # 1.7 K/mm3 (0.7-4.5); Lymphocytes % 24.6 % (10-50); Mean Corpuscular HGB Conc 33.7 g/dL (31.8-35.4); Mean Corpuscular Hemoglobin 29.5 pg (27.0-31.2); Mean Corpuscular Volume 87.5 fl (80-94); Monocytes # 0.8 K/mm3 (0.1-1.0); Monocytes % 10.8 % (1.7-9.3); Neutrophils # 3.9 K/mm3 (1.8-7.8); Neutrophils % 56.8 % (37.0-80.0); Platelet Count 255 K/mm3 (142-424); Red Cell Distribution Width 13.1 % (11.5-17.5); White Blood Count 6.9 K/mm3 (4.8-10.8)
[2021-01-30 07:15] LABS: Alanine Aminotransferase 27 U/L (12-78); Albumin Level 3.9 g/dl (3.5-5.0); Albumin/Globulin Ratio 1.2 (1.1-1.8); Alkaline Phosphatase 91 U/L (38-126); Anion Gap 13.2 mEq/L (5-15); Aspartate Amino Transferase 31 U/L (17-59); Bilirubin,Total 0.5 mg/dl (0.2-1.3); Blood Urea Nitrogen 11 mg/dl (9-20); Calcium 10.4 mg/dl (8.4-10.2); Carbon Dioxide 22 mmol/L (22.0-30.0); Chloride 99 mmol/L (98-107); Creatinine Clearance Estimated 117 mL/min (50-200); Estimated Glomerular Filt Rate 86 ml/min (>60); GFR (African American) 104 ML/MIN (>60); Globulin 3.3 g/dL (1.3-3.2); Glucose 115 mg/dl (74-100); Magnesium 1.7 mg/dl (1.6-2.3); Potassium 4.2 mmoL/L (3.5-5.1); Sodium 130 mmol/L (136-145); Total Protein,Serum 7.2 g/dl (6.3-8.2)
[2021-01-30 08:00] VITALS: BP 124/73; PULSE 87; RESP 20; TEMP 36.7; O2SAT 96
--- NOTE | 2021-01-30 08:24 | HMH.DCSUM ---
General - General Admission date:: 01/28/21 Discharge date: 01/30/21 HPI HPI: 60-year-old male presented to our outpatient clinic today accompanied by his with concern for recurrent vomiting after he attempts to eat. Hasn't had much appetite for several weeks but in the last few days has started to have sensation that food is getting stuck when he tries to swallow. This causes some chest discomfort and he has had several episodes of vomiting because he can't get things to go down. He is able to swallow liquids but in small sips. He denies any hematemesis. Bowel and bladder are moving without difficulty. He takes Nexium daily, has had prior colonoscopy but no prior upper endoscopy. He had been taking quite a bit of ibuprofen for upper back pain but has stopped now because of his pending bronchoscopy to investigate a right lung mass. Also having a lot of difficulty with pain between his shoulder blades. This is present all day but worse in the mornings and evenings. Really does not improve with [place] at h.s. nor with several topicals that they have attempted from [facility]-kfw[facility]. He does have some mild shortness of breath with exertion which has been ongoing. Improves some with inhaler and/or nebulizer treatment. Weight is down 8 pounds in about 3 weeks and labs revealed hyponatremia as well as hypercalcemia and he was admitted for IV hydration, imaging and possibly upper endoscopy. Hospital Course Hospital Course: 60-year-old patient with new diagnosis of lung mass, concern for dysphagia. Admitted for dysphagia, dehydration, electrolyte disturbances. Maintenance fluids for hyponatremia with improvement during hospitalization. Surgery and pulmonology were consulted to assist with care during admission. Surgery scoped patient with EGD, noted to have some esophageal dysmotility and spasm along with mild gastritis but no silvano achalasia. Diet was gradually advanced with good tolerance. Initiated on Protonix. Given improvement in electrolytes and tolerance of p.o. intake, decision made to discharge patient home given his medical stability. Further assessment of pulmonary findings to be performed at previously scheduled outpatient bronchoscopy. On day of discharge, patient denied nausea, fever, shortness of breath. Complained of some intermittent sensation of larger bites of food having difficulty going down but ultimately going down completely with no reflux or emesis. Hemodynamically stable. Medically stable for discharge home. Objective Vital signs: Temp Pulse Resp BP Pulse Ox 97.7 F 81 16 134/78 97 01/30/21 04:00 01/30/21 04:00 01/30/21 04:00 01/30/21 04:00 01/30/21 04:00 Narrative: - Constitutional no acute distress - *Routine HEENT Exam Head: Present: normocephalic Eye: Present: conjunctivae pink ENT: Present: mucous membranes dry (edentulous, abnormal tongue contour from prior excisions), oropharynx clear - *Routine Neck Exam Present: supple. Absent: lymphadenopathy - *Routine Respiratory Exam Present: decreased breath sounds, CTA bilaterally. Absent: accessory muscle use - *Routine Cardiovascular Exam Present: RRR, murmur - *Routine Abdominal Exam Present: soft, normoactive bowel sounds. Absent: tenderness, distended - *Routine Extremities Exam Present: full ROM, pulses intact. Absent: clubbing, edema - *Routine Skin Exam Present: intact, dry, warm. Absent: rash - *Routine Neurological Exam Present: alert, oriented X3, moving all extremities, hearing grossly intact. Absent: altered mental status Results Labs on day of discharge: Labs from last 24 hours 01/30/21 01/30/21 06:07 06:07 WBC 6.9 RBC 4.10 L Hgb 12.1 L Hct 35.8 L MCV 87.5 MCH 29.5 MCHC 33.7 RDW 13.1 Plt Count 255 MPV 7.0 L Neut % (Auto) 56.8 Lymph % (Auto) 24.6 [place] % (Auto) 10.8 H Eos % (Auto) 7.1 Baso % (Auto) 0.7 Neut # (Auto) 3.9 Lymph # (Auto) 1
== END 2021-01-30 12:00 | disposition home or self-care (01) | DRG 641 ==
LOC: 2ND 12:18
PROVIDERS: Internal Medicine Adolescent Medicine; Nurse Practitioner Family; Surgery; Admitting Provider Internal Medicine Adolescent Medicine; PCP Internal Medicine Adolescent Medicine; Visit Provider Internal Medicine Adolescent Medicine
PROC: 0DJ08ZZ Inspection of Upper Intestinal Tract, Via Natural or Artificial Opening Endoscopic (ICD-10-PCS; CPT 43235; principal; 2021-01-29 07:00)
DX: E86.0 Dehydration (principal); I10 Essential (primary) hypertension; E83.52 Hypercalcemia; I25.10 Atherosclerotic heart disease of native coronary artery without angina pectoris; E11.9 Type 2 diabetes mellitus without complications; R11.10 Vomiting, unspecified; Z79.82 Long term (current) use of aspirin; Z79.84 Long term (current) use of oral hypoglycemic drugs; E87.1 Hypo-osmolality and hyponatremia; Z88.0 Allergy status to penicillin; Z88.5 Allergy status to narcotic agent
CPT/HCPCS: 43239; 36415; 71046; 74220; 80048; 80053; 83735; 85025; 87040; 88305; U0003

== ENCOUNTER → 2021-02-03 12:18 | Outpatient (CLI) | payer MEDICARE, OTHER, SELFPAY | PROVIDERS: PCP Nurse Practitioner Family; Visit Provider Internal Medicine Pulmonary Disease | DX: Z01.818 Encounter for other preprocedural examination (principal); Z20.822 Contact with and (suspected) exposure to COVID-19 | CPT/HCPCS: U0003 ==

== ENCOUNTER → 2021-02-04 10:57 | Outpatient (CLI) | payer MEDICARE, OTHER, MEDICAID, SELFPAY ==
--- NOTE | 2021-02-04 11:04 | XR_ITS ---
PROCEDURE: XR HIP LT 2-3V W/PELVIS CLINICAL INDICATION: LT HIP PAIN COMPARISON: CT CT CHEST W CON from 12/11/2020 FINDINGS: There is an ill-defined lytic process involving the proximal diaphyseal region of the femur just distal to the intertrochanteric area. This has a somewhat permeated of appearance best seen on the abduction ule view. There may be some minimal periosteal reaction at this area. Suggest CT for more thorough evaluation. No acute fracture is apparent. The region measures approximately 4 cm. There are mild osteoarthritic changes of the left hip. Contrast is present in the colon from previous barium study. IMPRESSION: Lytic lesion of the proximal femur suspicious for neoplasm. Metastatic disease is a consideration in this patient with a right lower lobe mass as seen on previous chest CT. Suggest CT for more thorough evaluation. Dictated by: Sherif Zurita MD 02/04/2021 18:03 Sherif Zurita MD in [place] 02/04/2021 18:03
== END ==
PROVIDERS: PCP Nurse Practitioner Family; Visit Provider Nurse Practitioner Family
DX: M25.552 Pain in left hip (principal)
CPT/HCPCS: 73502

== ENCOUNTER 2021-02-05 09:57 | Day surgery (SDC) | payer MEDICARE, OTHER, SELFPAY ==
[2021-02-02 14:52] VITALS: BMI 28.0
[2021-02-05] VITALS (14 sets, daily range): BP systolic 93–138; BP diastolic 56–75; PULSE 85–97; RESP 16–18; TEMP 36.1–36.3; O2SAT 92–98
--- NOTE | 2021-02-05 | XR_ITS ---
PROCEDURE: XR CHEST AP CLINICAL HISTORY: EBUS WITH LUNG BIOPSY COMPARISON: CR CXR CHEST(2 VIEWS-NOT PORTABLE) from 05/28/2017 CR XR CHEST 2V from 12/04/[address] CHEST W CON from 12/11/2020 CR XR CHEST 2V from 01/28/2021 CT,PT PET/CT from 02/08/2021 FINDINGS: Two images are submitted with the C-arm with the bronchus scope and biopsy catheter overlying the right lower lung zone IMPRESSION: Status post fluoroscopic guided right-sided bronchoscopy with lung biopsy Dictated by: Sherif Zurita MD 03/12/2021 17:35 Sherif Zurita MD in [place] 03/12/2021 17:35
[2021-02-05 11:30] LABS: POC Glucose,Bedside 101 (70-110)
--- NOTE | 2021-02-05 11:32 | SUR.PREOP ---
pt. complaining of left foot/ toe pain and coldness. Asked if I could make him a apt with his PCP. Called Aysha Preston and scheduled him for a visit on February 10 at 3 pm.
--- NOTE | 2021-02-05 12:46 | HMH.ANESCL ---
[facility] Anesthesia Checklist - Patient Identification Patient Identification: Arm Band - Structural Data Admitted From: Home Planned Operative Procedure/s: bronchoscopy with bx and EBUS Consent for Planned Operative Procedure(s) Verified: Yes Verified Documents: Surgical Consent, History and Physical - NPO Status Verified Time NPO: 00:00 - Additional verifications Anesthesia Reactions: No Hx Blood Transfusions: No Blood Transfusion Reaction: No - Airway Assessment C-Spine Mobility Assessed: Yes (mp2) TMJ Mobility Assessed: Yes Dentition: Edentulous - Neurological Assessment Level of Consciousness: Awake, Alert - Anesthesia Plan Anesthesia Risk discussed: Yes Anesthesia Plan: Verified ASA Class: III Anesthesia Type: General [facility] History I have reviewed the patient's past medical history: Yes Medical History: Reports:: Anxiety, Coronary Artery Disease, Diabetes Mellitus Type 2, Gastroesophageal Reflux Disease(GERD), Hyperlipidemia, Hypertension, Palpitations Denies:: Cancer, Diabetes Mellitus Type 1, Internal Pacemaker, MRSA, Seizures *Have you ever received a pneumonia vaccine?: No *Have you received a flu vaccine this season?: No Other Medical History: Reports: Arthritis. Denies: Blood Transfusion Reaction Anesthesia experience/problems:: nac Other Surgeries: Yes: Cardiac Catheterization, Colonoscopy, Other (ORAL SX). No: Pacemaker Amputation: No Fractures: No - *Social History Last grade of school completed: High school graduate Smoking Status: Former smoker Tobacco Type: cigarettes # Packs/Day (cigarettes): 1 Alcohol Intake: never Alcohol Intake Frequency:: other Substance Use Type: denies use *Occupational Status:: disabled Housing: house Household Members: spouse *Travel in the last 8 weeks: None - Psychiatric History Pschychiatric History:: Reports:: Anxiety Family Hx:: Hyperlipidemia, Hypertension
--- NOTE | 2021-02-05 14:21 | HMH.ANESI ---
[facility] Anesthesia Record Part I Intake, IV Amount: 500 Estimated blood loss (mL): 0 Urine output (mL): 0 Blood Pressure: 93/60 SaO2: 96 Pulse Rate: 94 Respiratory Rate: 16 Temperature: 97.4 F Patient is:: Drowsy, Stable Stable to PACU at:: 14:15
--- NOTE | 2021-02-05 14:28 | HMH.BRONCH ---
- Procedure: Date: 02/05/21 Patient Date of :: 1960 Procedure Performed:: Bronchoscopy with EBUS FNA, BAL and transbronchial biopsy Indications:: Lung mass Performing Provider:: Sushila Devi MD Referring Provider:: Dr: Lyudmila Preston APRN Sedation:: General anesthesia Procedure:: Bronchoscopy with EBUS FNA, bronchoscopy with BAL and transbronchial biopsy: Clean EBUS bronchoscopy advance the ET tube and lymph node turbulence were performed. Fine-needle aspiration was performed the lymph node stations 10 L, station 7 and station 4R, all on clinical examination appeared to be positive for malignancy. Adequate sample was obtained for cell block analysis. EBUS bronchoscopy retracted and regular therapeutic bronchoscopy was advanced and airways were examined up to 6 segmental bronchi. Right middle lobe and right lower lobe lumen appeared narrowed by more than 50% on examination. Bronchoscopy was able to be advanced to the right lower lobe bronchi. Transbronchial biopsies was performed in the right lower lobe posterior segment. BAL was performed in the right lower lobe posterior segment with a total of 40 cc of normal saline instillation with return of 15 cc, that was sent for cytopathological examination. Patient tolerated the procedure with no complications. Follow the patient in the clinic with the results as previously scheduled. Findings:: See Procedure Note. Recommendations:: F/U with results in the clinic as previously scheduled Complications:: None Estimated blood obtained (mL): 5
--- NOTE | 2021-02-05 14:43 | XR_ITS ---
PROCEDURE: XR CHEST PORTABLE CLINICAL HISTORY: bronchoscopy Follow-up bronchoscopy COMPARISON: CR XR CHEST 2V from 12/04/[address] CHEST W CON from 12/11/2020 CR XR CHEST 2V from 01/28/2021 CR XR CHEST AP from 02/05/2021 FINDINGS: Status post right-sided bronchoscopy. No evidence of pneumothorax. There is an oval lucent region in the right lung base within the area of the previously noted mass measuring 3 cm. This could represent changes from bronchoscopy or could be due to an area cavitation. IMPRESSION: Status post bronchoscopy. 3 cm oval lucency right lung base. Possibly due to an area of abscess involvement or changes following the bronchoscopy Dictated by: Sherif Zurita MD 02/05/2021 15:29 Sherif Zurita MD in [facility] 02/05/2021 15:29
[2021-02-05 15:02] LABS: POC Glucose,Bedside 103 (70-110)
== END 2021-02-05 16:15 | disposition home or self-care (01) ==
PROVIDERS: PCP Nurse Practitioner Family; Visit Provider Internal Medicine Pulmonary Disease
DX: D49.1 Neoplasm of unspecified behavior of respiratory system (principal); E11.9 Type 2 diabetes mellitus without complications; Z79.84 Long term (current) use of oral hypoglycemic drugs; I25.10 Atherosclerotic heart disease of native coronary artery without angina pectoris; I10 Essential (primary) hypertension; Z79.899 Other long term (current) drug therapy; Z88.8 Allergy status to other drugs, medicaments and biological substances
CPT/HCPCS: 31624; 31653; 71045; 76000; 82962; 88112; 88172; 88173; 88305; 94640; J2405

== ENCOUNTER → 2021-02-12 09:43 | Outpatient (CLI) | payer MEDICARE, OTHER, SELFPAY ==
--- NOTE | 2021-02-12 09:49 | XR_ITS ---
PROCEDURE: XR CHEST 2V CLINICAL HISTORY: post procedure Shortness of breath. Recent bronchoscopy. COMPARISON: CT CT CHEST W CON from 12/11/2020 CR XR CHEST 2V from 01/28/2021 CR XR CHEST PORTABLE from 02/05/2021 CR XR CHEST AP from 02/05/2021 FINDINGS: There is a right-sided hydro pneumothorax. The apical component is small with the apical pleural distance measuring approximately 8 mm. The basilar component is larger and appears somewhat loculated. The lateral component in the right lung base measures approximately 2 cm. Pleural effusion is noted and layering out with an air-fluid level in the right lung base. No midline shift is evident. There is a pleural-based mass on the left with destruction of the left 7th rib with pathologic rib fracture. Unremarkable cardiovascular structures. There is mild prominence of the right hilum suspicious for underlying adenopathy. IMPRESSION: Interval development of small right-sided hydro pneumothorax probably less than 10 percent of the total lung volume as described above. Destructive left 7th rib lesion with pathologic fracture consistent with metastatic focus Mild prominence of the right hilum The office was called with these findings 02/12/2021 at 12:30 p.m. and message given to Berna as neither Dr. Lew nor Kerline was available Dictated by: Sherif Zurita MD 02/12/2021 12:32 Sherif Zurita MD in [facility] 02/12/2021 12:32
--- NOTE | 2021-02-12 11:53 | XR_ITS ---
PROCEDURE: XR FOOT RT MIN 3V CLINICAL INDICATION: LUNG CANCER Foot pain COMPARISON: No exams were available for comparison FINDINGS: No fracture or dislocation. No lytic or blastic change. There is normal mineralization. The joint spaces are well-preserved. No significant degenerative/arthritic changes. No erosive changes evident. Other findings:There is cortical thickening and lobulation of the distal aspect of the tibia posteriorly and may be due to an old fracture IMPRESSION: Old distal tibial fracture. Otherwise negative Dictated by: Sherif Zurita MD 02/12/2021 16:04 Sherif Zurita MD in [facility] 02/12/2021 16:04
== END ==
PROVIDERS: PCP Internal Medicine Adolescent Medicine; Visit Provider Internal Medicine Pulmonary Disease
DX: C34.90 Malignant neoplasm of unspecified part of unspecified bronchus or lung; J44.9 Chronic obstructive pulmonary disease, unspecified
CPT/HCPCS: 71046; 73630

== ENCOUNTER 2021-02-17 00:26 | Emergency (ER) | payer MEDICARE, OTHER, SELFPAY ==
[2021-02-17 00:25] VITALS: BP 109/52; PULSE 89; RESP 17; TEMP 36.9; O2SAT 98; BMI 29.1
--- NOTE | 2021-02-17 00:27 | [facility].EDGENADL ---
ED Disposition Clinical Impression: Ischemia of extremity Chest pain Qualifiers: Chest pain type: unspecified Qualified Code(s): R07.9 - Chest pain, unspecified Disposition: Xfer Short-Term Hosp Condition on Discharge: Fair Referrals: PCP,No [Primary Care Provider] - Forms: Transfer Record - ED Time of Disposition: 02:08 - Critical Care Critical Care Time: Yes (45) Attestation: On , the high probability of a clinically significant, sudden or life threatening deterioration of the following system(s) required my full and direct attention, intervention and personal management. The time I documented below is in addition to time spent performing reported procedures but includes the following listed in this critical care notation. Total Critical Care Time: 45 Vital system(s) involved:: Circulatory Failure My critical care processes included: Assessment & monitoring of V/S, Initial and Re-exams, Data Review/Interpretation, Coordinating Care, Medication Orders and management, Documentation Medical Decision Making - Medical Records Medical records reviewed: Yes: I reviewed the patient's medical records. - Humberto Inquiry Pt receiving controlled substance: No Vital Signs: 02/17/21 00:25 02/17/21 00:35 02/17/21 00:55 Temperature 98.5 F Temperature Source Oral Pulse Rate 89 90 Pulse Rate [Right Brachial] 89 Respiratory Rate 17 Blood Pressure 109/52 L 91/56 L Blood Pressure [Right Arm] 109/52 L Blood Pressure Mean Blood Pressure Mean [Right Arm] 71 Blood Pressure Source Blood Pressure Source [Right Arm] Automatic Cuff Blood Pressure Position Blood Pressure Position [Right Arm] Sitting 02 Sat by Pulse Oximetry 98 95 96 Oxygen Delivery Method Room Air 02/17/21 01:01 02/17/21 01:31 02/17/21 02:46 Temperature 98.2 F Temperature Source Oral Pulse Rate 84 85 81 Pulse Rate [Right Brachial] Respiratory Rate 17 16 18 Blood Pressure 113/77 104/48 L 102/45 L Blood Pressure [Right Arm] Blood Pressure Mean 85 66 Blood Pressure Mean [Right Arm] Blood Pressure Source Automatic Cuff Blood Pressure Source [Right Arm] Blood Pressure Position Sitting Blood Pressure Position [Right Arm] 02 Sat by Pulse Oximetry 95 92 L Oxygen Delivery Method Room Air Room Air - Lab Data Lab results reviewed: Yes: I reviewed the patient's lab results. Lab Results 02/17/21 00:55: WBC 10.3, RBC 4.09 L, Hgb 12.0 L, Hct 36.6 L, MCV 89.4, MCH 29.3, MCHC 32.8, RDW 13.5, Plt Count 420, MPV 7.7, Neut % (Auto) 62.1, Lymph % (Auto) 15.4, [place] % (Auto) 10.1 H, Eos % (Auto) 10.0, Baso % (Auto) 2.3 H, Neut # (Auto) 6.4, Lymph # (Auto) 1.6, [place] # (Auto) 1.1 H, Eos # (Auto) 1.0 H, Baso # (Auto) 0.2 02/17/21 00:55: Sodium 123 L, Potassium 4.9, Chloride 90 L, Carbon Dioxide 22, Anion Gap 15.9 H, BUN 24 H, Creatinine 1.30 H, Estimated Creat Clear 81, Estimated GFR 56 L, Est GFR ( Amer) 68, Glucose 109 H, Calcium 13.2 H* 02/17/21 00:55: Troponin I < 0.01 02/17/21 02:19: APTT 31.9 H Result diagrams: 02/17/21 00:55 02/17/21 00:55 Orders (Tests/Meds): ED MEDICATIONS Generic Name Dose Route Start Last Admin Trade Name Freq PRN Reason Stop Dose Admin Sodium Chloride 1,000 mls @ 500 mls/hr 02/17/21 01:45 02/17/21 01:47 Sod Chlor 0.9% 1000ml Bag IV 03/19/21 01:44 500 mls/hr .Q2H VENESSA Administration Heparin Sodium/Dextrose 500 mls @ 34 mls/hr 02/17/21 02:15 02/17/21 02:28 Heparin 25,000 Units In D5w 500ml Premix IV 03/19/21 02:14 34 mls/hr .[id number] VENESSA Administration 1,700 UNITS/HR Discontinued Medications Generic Name Dose Route Start Last Admin Trade Name Freq PRN Reason Stop Dose Admin Aspirin 325 mg 02/17/21 01:03 02/17/21 01:27 Aspirin 325mg Tablet PO 02/17/21 01:04 Not Given ONCE ONE Aspirin 324 mg 02/17/21 01:26 02/17/21 01:27 Aspirin 81mg Chewable Tablet PO 02/17/21 01:27 324 mg ONCE ONE Administration Heparin Sodium ([place]
[2021-02-17 00:35] VITALS: BP 109/52; PULSE 89; O2SAT 95
[2021-02-17 00:55] VITALS: BP 91/56; PULSE 90; O2SAT 96
[2021-02-17 01:01] VITALS: BP 113/77; PULSE 84; RESP 17; O2SAT 95
--- NOTE | 2021-02-17 01:02 | XR_ITS ---
PROCEDURE: XR CHEST PORTABLE CLINICAL HISTORY: cp COMPARISON: CT CT CHEST W CON from 12/11/2020 CR XR CHEST PORTABLE from 02/05/2021 CR XR CHEST AP from 02/05/2021 CR XR CHEST 2V from 02/12/[address] ANGIO ABDOMEN/FEMORAL from 02/17/2021 FINDINGS: The right-sided hydropneumothorax is again noted, marginally worse compared to the prior study. Adjacent subsegmental atelectasis is noted. No other lobar consolidation. Destructive left 7th rib lesion is again noted. No other focal suspicious lesions are noted within the limitations of the study. Cardiac size and central pulmonary vasculature within normal limits. IMPRESSION: Right-sided hydropneumothorax persists, marginally worse compared to the prior study. Dictated by: Vicky Zavala 02/17/2021 08:46 Vicky Zavala in [facility] 02/17/2021 08:46
--- NOTE | 2021-02-17 01:05 | ECG_ITS ---
APPROVED REPORT Exam: Resting ECG HR:86 bpm ECG Measurements Heart Rate 86 AXES CA 206 P 52 QRSd 102 QRS 39 QT 358 T 34 QTc 428 Conclusion Normal sinus rhythm Low voltage QRS Borderline ECG Electronically signed by : Solo Ortega, 02/17/2021 13:20:13
[2021-02-17 01:12] LABS: Basophils # 0.2 K/mm3 (0-0.2); Basophils % 2.3 % (0.1-2.0); Chloride 90 mmol/L (98-107); Hematocrit 36.6 % (42.0-52.0); Lymphocytes # 1.6 K/mm3 (0.7-4.5); Lymphocytes % 15.4 % (10-50); Mean Corpuscular HGB Conc 32.8 g/dL (31.8-35.4); Mean Corpuscular Hemoglobin 29.3 pg (27.0-31.2); Mean Corpuscular Volume 89.4 fl (80-94); Mean Platelet Volume 7.7 fl (7.4-10.4); Monocytes # 1.1 K/mm3 (0.1-1.0); Monocytes % 10.1 % (1.7-9.3); Neutrophils # 6.4 K/mm3 (1.8-7.8); Neutrophils % 62.1 % (37.0-80.0); Platelet Count 420 K/mm3 (142-424); Potassium 4.9 mmoL/L (3.5-5.1); Red Blood Count 4.09 M/mm3 (4.60-6.20); Red Cell Distribution Width 13.5 % (11.5-17.5); Sodium 123 mmol/L (136-145); White Blood Count 10.3 K/mm3 (4.8-10.8)
[2021-02-17 01:15] LABS: Anion Gap 15.9 mEq/L (5-15); Blood Urea Nitrogen 24 mg/dl (9-20); Carbon Dioxide 22 mmol/L (22.0-30.0); Creatinine Clearance Estimated 81 mL/min (50-200); Estimated Glomerular Filt Rate 56 ml/min (>60); GFR (African American) 68 ML/MIN (>60)
[2021-02-17 01:16] LABS: Calcium 13.2 mg/dl (8.4-10.2); Glucose 109 mg/dl (74-100)
[2021-02-17 01:31] VITALS: BP 104/48; PULSE 85; RESP 16; O2SAT 92
--- NOTE | 2021-02-17 01:39 | PC.NURSE ---
calling [facility] at this time for possible transfer.
--- NOTE | 2021-02-17 01:43 | PC.NURSE ---
awaiting er md to be connected at this time.
--- NOTE | 2021-02-17 01:58 | PC.NURSE ---
speaking to dr. trotter at at this time.
--- NOTE | 2021-02-17 02:00 | PC.NURSE ---
dr. trotter accepted to the er.
[2021-02-17 02:10] LABS: Troponin I < 0.01 ng/ml (0.00-0.034)
--- NOTE | 2021-02-17 02:18 | CT_ITS ---
Procedure: CT ANGIO ABDOMEN/FEMORAL CLINICAL HISTORY: R foot ischemia COMPARISON: No exams were available for comparison TECHNIQUE: IV Contrast: 100ml Isovue 370 Axial images obtained with sagittal and coronal reformats. All CT scans at the facility use one or more dose reduction, viz: automated exposure control, ma/kV adjustment per patient size (including targeted exams where dose is matched to indication, i.e. head), or iterative reconstruction technique. FINDINGS: Right: Atherosclerotic vascular calcification of the right common iliac artery with the moderate stenosis. Atherosclerotic vascular calcification of the right into external iliac and the common femoral artery demonstrates mild to moderate stenosis. The right superficial femoral, and popliteal artery are normal in caliber. The popliteal artery trifurcations normally in the popliteal fossa. There is loss of demonstrable flow noted in the anterior tibial, and peroneal artery at the level of mid calf. The posterior tibial artery is diminutive and demonstrates flow up to the level of the ankle. Collateral vessels are noted in the distal calf. Single-vessel runoff to the ankle is noted. Left: Extensive atherosclerotic vascular calcification of the left common iliac artery with the evidence of moderate stenosis. The left external iliac artery is unremarkable. Atherosclerotic calcification of the left common femoral artery is noted. The left superficial femoral and popliteal arteries are unremarkable. The popliteal artery trifurcations and demonstrates normal flow up to the level of the ankle. Three-vessel runoff is noted on the left. The pelvic structures are unremarkable. Moderate fecal retention of the colon is noted. Few colonic diverticula of the visualized colon without evidence of diverticulitis. The appendix is normal. There is a lytic lesion noted in the left proximal femoral diaphysis with the cortical disruption and soft tissue component extending into the vastus muscles, highly concerning for neoplastic process. Pathological fracture is suspected. There is a focal lytic lesion with cortical breach in the greater trochanter of the right femur, left acetabulum, bilateral iliac bones some of which demonstrate cortical disruption. Focal soft tissue density arterially enhancing lesion in the mid soleus muscle,, concerning for soft tissue metastasis. Focal sclerotic serpiginous appearing lesion is noted in the proximal tibia on the right, without cortical breach, most likely represents a bone infarct. IMPRESSION: Flow demonstrated up to the level of the mid calf on the right with the single-vessel runoff to the right ankle. Collateral vessels noted in the right distal lower extremity. Three-vessel runoff to the left ankle. Multiple lytic lesions in the visualized pelvis and bilateral femora, highly suspicious for metastatic disease. Focal destructive lesion in the left intertrochanteric region of the left femur extending into the proximal femoral diaphysis with areas of lucency, highly concerning for impending pathological fracture. Soft tissue density arterial enhancing lesion in the mid soleus muscle, may represent soft tissue metastatic deposit. Dictated by: Vicky Zavala 02/17/2021 08:38 Vicky Zavala in [facility] 02/17/2021 08:38
--- NOTE | 2021-02-17 02:38 | PC.NURSE ---
spoke with , joi via phone. advised of status, agreeable to plan of care to transfer. no issues or contestations.
[2021-02-17 02:41] LABS: Activated Partial Thrombo Time 31.9 seconds (22.8-30.6)
[2021-02-17 02:46] VITALS: BP 102/45; PULSE 81; RESP 18; TEMP 36.8; O2SAT 98
== END 2021-02-17 03:39 | disposition short-term general hospital (02) ==
PROVIDERS: Emergency Provider Family Medicine
DX: I77.1 Stricture of artery (principal); E83.52 Hypercalcemia; C34.90 Malignant neoplasm of unspecified part of unspecified bronchus or lung; E11.65 Type 2 diabetes mellitus with hyperglycemia; I25.10 Atherosclerotic heart disease of native coronary artery without angina pectoris; I10 Essential (primary) hypertension; K21.9 Gastro-esophageal reflux disease without esophagitis; E78.5 Hyperlipidemia, unspecified
CPT/HCPCS: 71045; 75635; 80048; 84484; 85025; 85730; 93005; 96365; 96367; 96375; 99284; Q9967